=== PATIENT | male | born 1955 | race Caucasian/White ===

== ENCOUNTER → 2018-09-08 11:32 | Outpatient (CLI) | payer OTHER, SELFPAY ==
[2018-09-08 12:20] LABS: Add Manual Diff / Slide Review NO; Basophils Absolute Auto 100 /uL (0-100); Basophils Percent Auto 1.3 % (0-2); Eosinophils Absolute Auto 200 /uL (0-450); Eosinophils Percent Auto 3.9 % (2-4); Hematocrit 44.8 % (41-53); Hemoglobin 15.1 g/dL (13.5-17.5); Lymphocytes Absolute Auto 2100 /uL (1100-4500); Mean Corpuscular HGB Conc 33.8 % (30-36); Mean Corpuscular Hemoglobin 31.5 PG (26-34); Mean Corpuscular Volume 93.2 fL (80-100); Monocytes Absolute Auto 500 /uL (0-900); Monocytes Percent Auto 10.6 % (3-14); Neutrophils Absolute Auto 2200 /uL (1500-7000); Neutrophils Percent Auto 43.2 % (50-75); Platelet Count 205 X10^3/uL (150-400); Red Blood Cell Count 4.81 X10^6/uL (4.5-5.9); Red Cell Distribution Width 13.8 % (11.6-14.8)
[2018-09-08 12:29] LABS: Alanine Aminotransferase 46 IU/L (21-72); Albumin 4.9 g/dL (3.5-5.0); Albumin Globulin Ratio 1.8 (1.0-2.8); Alkaline Phosphatase 68 U/L (38-126); Aspartate Aminotransferase 30 IU/L (17-59); BUN Creatinine Ratio 22.5 (6-22); Blood Urea Nitrogen 18 mg/dL (9-20); Calcium 9.5 mg/dL (8.4-10.2); Carbon Dioxide 29 mmol/L (22-32); Chloride 99 mmol/L (98-107); Cholesterol 231 mg/dL (140-199); Estimated Glomerular Filt Rate > 60.0 mL/min (>60); Globulin 2.8 g/dL (1.7-4.1); Glucose 114 mg/dL (80-110); HDL Cholesterol 71 mg/dL (40-60); HEMOLYSIS < 15 (0-50); LDL Cholesterol Calculated 140 mg/dL (<100); Potassium 4.8 mmol/L (3.4-5.1); Sodium 138 mmol/L (137-145); Total Protein 7.7 g/dL (6.3-8.2); Triglycerides 102 mg/dL (35-150)
[2018-09-08 12:57] LABS: Prostate Specific Antigen Scrn 1.73 ng/mL (0.1-4.0)
[2018-09-08 13:58] LABS: Thyroid Stimulating Hormone 0.56 uIU/mL (0.47-4.68)
== END ==
PROVIDERS: PCP Family Medicine; Visit Provider Family Medicine
DX: E78.2 Mixed hyperlipidemia (principal); I10 Essential (primary) hypertension; Z12.5 Encounter for screening for malignant neoplasm of prostate; Z13.6 Encounter for screening for cardiovascular disorders; Z13.29 Encounter for screening for other suspected endocrine disorder
CPT/HCPCS: 36415; 80053; 80061; 84443; 85025; G0103

== ENCOUNTER → 2020-08-31 11:06 | Outpatient (CLI) | payer OTHER, SELFPAY ==
[2020-08-31 12:34] LABS: COVID19 -Nasal RAPID Negative (Negative)
== END ==
PROVIDERS: PCP Family Medicine; Visit Provider Physician Assistant
DX: Z01.812 Encounter for preprocedural laboratory examination (principal); Z20.822 Contact with and (suspected) exposure to COVID-19
CPT/HCPCS: 87635

== ENCOUNTER 2020-09-02 12:01 | Day surgery (SDC) | payer OTHER, SELFPAY ==
--- NOTE | 2020-09-02 12:17 | PM.HP.1 ---
History of Present Illness History of Present Illness Date Patient Seen: 09/02/20 Chief complaint: SDC Narrative: 65 Years Old Male seen today for consideration of a screening colonoscopy. One previous colonocopy approximately 10 years ago, normal. There have been no lower GI symptoms suggesting disease such as change in bowel habits, bleeding, abdominal pain or anemia. There's been no family history of colon cancer or colon polyps. Overall health issues have been stable, including no major cardiac events for at least 6 weeks. Past Medical History: HYPERLIPIDEMIA Hypertension Past Surgical History: Total Hip Arthroplasty (right 2007) left (2009) Knee Arthroscopy- Meniscus- right (2016) left (2019) Colonoscopy Family History: Reviewed history from 06/07/2020 and no changes required: Father: substance abuse Mother: heart disease Siblings: Social History: Marital Status: Children: Occupation: Retired Teacher Household Members: Glo Kemp (08/12/62) Education: 2 alcoholic drinks daily. Patient History Surgical History (Updated 07/09/17 @ 06:19 by Conversion Provider) History of hip replacement History of hip replacement Family & Social History Family History (Updated 10/22/13 @ 00:00 by Conversion Provider) Mother Hypertension High cholesterol Heart disease Meds Home Medications and Allergies Home Medications Medication Instructions Recorded Confirmed Type ASPIRIN (#ASPIRIN EC) 325 mg PO Q DAY #0 01/14/11 09/02/20 History quinapril 40 mg tablet 40 mg PO BID #180 tab 08/17/19 09/02/20 Rx amlodipine 5 mg tablet 5 mg PO QDAY #90 tab 10/26/19 09/02/20 Rx atorvastatin 20 mg tablet 40 mg PO BID #360 tab 10/26/19 09/02/20 Rx Allergies Allergy/AdvReac Type Severity Reaction Status Date / Time No Known Drug Allergies Allergy Verified 09/02/20 12:29 Review of Systems Review of Systems ROS: Yes All systems reviewed with the patient and are negative except as otherwise documented Exam Narrative Exam Narrative: General: well developed, well nourished, in no acute distress, Head: normocephalic and atraumatic, Lungs: normal respiratory effort, clear bilaterally to auscultation, no wheezes rales or rhonchi. Heart: normal rate and regular rhythm, no murmurs, rubs, gallops, or clicks, Abdomen: abdomen soft and non-tender without masses, organomegaly, or abdominal wall hernias, bowel sounds positive. Skin: intact without suspicious lesions or rashes, Psych: alert and cooperative; normal mood and affect; normal attention span and concentration; cognition, remote and recent memory appear to be intact, Assessment & Plan Assessment & Plan narrative: 1. Screening for colon cancer Plan for colonoscopy. The nature and character of the procedure as well as anticipated results were discussed. The possibility of not completing the procedure was also discussed. Possible complications including aspiration pneumonia, bleeding, perforation and reaction to medications either for sedation or preparation and missed lesions were discussed. Questions were answered and proceeding to the colonoscopy was elected. Informed consent signed. I sincerely appreciate the referral allowing me to participate in this patient's care. Please contact me with any questions or concerns.
--- NOTE | 2020-09-02 12:18 | PM.OP.ENDO ---
Operative Date/Time/Diagnoses Date of procedure: 09/02/20 Procedure Notes SCOAP/Timeout: 1:46 p.m. Procedure in detail: ENDOSCOPIST: Bre Farnsworth MD Sedation RN: Milo Carter RN Sedation start time: 1:47 p.m. Sedation end time: 2:06 p.m. PROCEDURE: Colonoscopy INDICATIONS: 1. Screening for colon cancer MEDICATION: Levsin 0.125 mg sublingual, incremental doses of Versed and fentanyl until appropriate level sedation achieved. ASA CLASS: 2 CECAL WITHDRAWAL TIME: 10 minutes COMPLICATIONS: None. EXTENT OF PROCEDURE: Cecum. QUALITY OF PREP: Good with portions of liquid stool. PROCEDURE: Prior to insertion of the colonoscope, a digital rectal examination was accomplished with circumferential palpation of the distal rectal mucosa without significant findings being noted. The high-definition colonoscope was passed into the rectum in the usual fashion and advanced over to the cecum without difficulty. The ileocecal valve, appendiceal stoma, and medial wall all could be inspected and no abnormalities were seen. ASCENDING COLON: As the colonoscope was withdrawn, care was taken to expose and inspect the haustral folds and no abnormalities were seen. HEPATIC FLEXURE: Normal, no polyps, diverticula or other abnormalities. TRANSVERSE COLON: Normal, no polyps, diverticula or other abnormalities. DESCENDING COLON: Normal, no polyps, diverticula or other abnormalities. SIGMOID COLON: Normal, no polyps, diverticula or other abnormalities. RECTUM: Normal. J maneuver was produced. There was no significant perianal disease. The J maneuver was broken. The remainder of the rectum was inspected and there was no external hemorrhoid disease. The scope was withdrawn. IMPRESSION: 1. Normal colonoscopy PLAN: 1. Repeat colonoscopy in 10 years. The possibility of a missed lesion including a malignancy has been discussed with the patient previously. Potential alarm symptoms have been discussed and should be reported immediately.
[2020-09-02 12:37] VITALS: BMI 27.6
[2020-09-02 12:43] VITALS: BP 151/90; PULSE 84; RESP 15; TEMP 36.6; O2SAT 96
[2020-09-02] MEDS: LACTATED RINGERS 1,000 ML 200 ML IV (12:45)
[2020-09-02] MEDS: MIDAZOLAM 5 MG/5 ML VIAL IV (14:03)
[2020-09-02] MEDS: fentaNYL 250 MCG/5 ML INJ IV (14:03)
[2020-09-02 14:12] VITALS: BP 127/71; PULSE 80; RESP 16; TEMP 36.6; O2SAT 100
[2020-09-02 14:17] VITALS: BP 120/83; PULSE 88; RESP 16; O2SAT 97
[2020-09-02 14:23] VITALS: BP 120/83; PULSE 81; RESP 14; O2SAT 97
[2020-09-02 14:39] VITALS: BP 122/70; PULSE 69; RESP 16; TEMP 36.7
== END 2020-09-02 14:43 | disposition home or self-care (01) ==
PROVIDERS: PCP Family Medicine; Referring Provider Student in an Organized Health Care Education/Training Program; Visit Provider Student in an Organized Health Care Education/Training Program
PROC: 0DJD8ZZ Inspection of Lower Intestinal Tract, Via Natural or Artificial Opening Endoscopic (ICD-10-PCS; CPT 45378; principal; 2020-09-02 13:45)
DX: Z12.11 Encounter for screening for malignant neoplasm of colon (principal); E78.5 Hyperlipidemia, unspecified; I10 Essential (primary) hypertension
CPT/HCPCS: 45378; J2250; J3010

== ENCOUNTER → 2022-07-16 07:42 | Outpatient (CLI) | payer MEDICARE, OTHER, SELFPAY ==
--- NOTE | 2022-07-18 11:37 | DI.NM.S_ITS ---
DATE OF SERVICE: 07/16/2022 PROCEDURE: Exercise treadmill stress test without imaging. ORDERING PROVIDER: Harry Tinsley MD INDICATIONS: The patient is a 67-year-old hypertensive male with hyperlipidemia and PVCs. FINDINGS: 1. The patient was able to exercise for 10 minutes and 28 seconds on a standard Mathieu protocol suggesting excellent exercise capacity with an CAMMY of -33%, achieving 12.8 METS. 2. He had a normal heart rate response to exercise achieving a maximum heart rate of 163 BPM (106% of his predicted maximum). He had a mild hypertensive blood pressure response with a resting blood pressure of 132/80, increasing to a maximum of 212/100. 3. He had no chest pain or other anginal symptoms. 4. His resting ECG showed sinus rhythm with occasional ventricular trigeminy and normal ST segments. With stress, he developed 1-[address] depression but this resolved within 1 minute of recovery and thus is nonspecific for ischemia. His PVCs resolved with stress but returned in recovery with a rare ventricular couplets, but no other complex ventricular ectopy. IMPRESSION: 1. Probable normal, low risk exercise treadmill stress test for ischemia. 2. Excellent exercise capacity without angina. While there is mild ST depression, this resolved early in recovery and is associated with a hypertensive blood pressure response to exercise making this finding nonspecific. If there is a high degree of clinical concern for underlying ischemic heart disease, consider an imaging stress test. 3. Resting PVCs that resolved with exercise, but returned in recovery with rare ventricular couplets, but no other complex ventricular ectopy. Alexx Bowman - ESCOBAR/carlo/toribio doc#: [id number]/job#: [id number] dd: 07/16/2022 16:47:00 dt: 07/16/2022 21:57:00 DICTATING MD/COPIES TO: Harry Cheung MD; Harry Tinsley MD COPIES MNE: MERLY;
== END ==
PROVIDERS: PCP Family Medicine; Referring Provider Family Medicine; Visit Provider Family Medicine
DX: I10 Essential (primary) hypertension (principal); E78.5 Hyperlipidemia, unspecified; I49.3 Ventricular premature depolarization
CPT/HCPCS: 93017

== ENCOUNTER 2022-11-10 06:45 | Emergency (ER) | payer MEDICARE, OTHER, SELFPAY ==
[2022-11-10] VITALS (11 sets, daily range): BP systolic 122–140; BP diastolic 61–71; PULSE 74–94; RESP 15–25; TEMP 37.1; O2SAT 92–97; BMI 28.8
--- NOTE | 2022-11-10 06:51 | ED.GENADULT ---
HPI - General Adult General Chief complaint: Allergic Reaction Stated complaint: swollen tongue Time Seen by Provider: 11/10/22 06:46 Related Data Home Medications Medication Instructions Recorded Confirmed ASPIRIN (#ASPIRIN EC) 325 mg PO Q DAY ##0 01/14/11 09/02/20 Previous Rx's Medication Instructions Recorded quinapril 40 mg tablet (Accupril) 40 mg PO BID #180 tabs 08/17/19 amlodipine 5 mg tablet (Norvasc) 5 mg PO QDAY #90 tabs 10/26/19 atorvastatin 20 mg tablet (Lipitor) 40 mg PO BID #360 tabs 10/26/19 Allergies Allergy/AdvReac Type Severity Reaction Status Date / Time No Known Drug Allergies Allergy Verified 09/02/20 12:29 Patient History Surgical History (Updated 07/09/17 @ 06:19 by Conversion Provider) History of hip replacement History of hip replacement Family History (Updated 10/22/13 @ 00:00 by Conversion Provider) Mother Hypertension High cholesterol Heart disease Social History household members: spouse Smoking Status: Never smoker alcohol intake: current Smoking Status: Never smoker alcohol intake frequency: 0-2 drinks per day Substance Use Type: does not use Exam Initial Vital Signs Initial Vital Signs: Vital Signs Temperature 98.7 F 11/10/22 06:49 Pulse Rate 94 H 11/10/22 06:49 Respiratory Rate 18 11/10/22 06:49 Blood Pressure 131/66 11/10/22 06:49 Pulse Oximetry 97 11/10/22 06:49 Oxygen Delivery Method Room Air 11/10/22 06:49 Course Orders Ordered: ED Orders 11/10/22 06:54 BMP [Basic Metabolic Panel] Stat C1 Esterase Inhibitor Stat C3 + C4 Stat CBC Auto Diff [Complete Blood Count AUTO DIFF] Stat Famotidine (Famotidine 20 Mg/2 Ml Vial) 20 mg IV NOW JOSE Sodium Chloride (Normal Saline 0.9%) 1,000 mls @ 1,000 mls/hr IV BOLUS ONE Stop: 11/10/22 07:50 Last Admin: 11/10/22 06:57 Dose: 1,000 mls/hr Documented By: RAMANDEEP Tranexamic Acid 1,000 mg/ (Sodium Chloride) 100 mls @ 200 mls/hr IV NOW ONE Stop: 11/10/22 07:23 Discontinued Medications Dexamethasone (Dexamethasone 10 Mg/Ml Vial) 10 mg IV NOW ONE Stop: 11/10/22 06:55 Diphenhydramine HCl (Diphenhydramine 50 Mg/Ml Vial) 50 mg IV NOW ONE Stop: 11/10/22 06:51 Last Admin: 11/10/22 06:55 Dose: 50 mg Documented By: RAMANDEEP Epinephrine HCl (Epinephrine 1 Mg/Ml) 0.3 mg IM NOW ONE Stop: 11/10/22 06:51 Last Admin: 11/10/22 06:54 Dose: 0.3 mg Documented By: RAMANDEEP Methylprednisolone (Methylprednisolone 125 Mg/2 Ml Vial) 125 mg IV NOW ONE Stop: 11/10/22 06:51 Last Admin: 11/10/22 06:55 Dose: 125 mg Documented By: RAMANDEEP Vital Signs Vital signs: Vital Signs - 8 hr 11/10/22 06:49 Temperature 98.7 F Pulse Rate 94 H Respiratory Rate 18 Blood Pressure 131/66 Pulse Oximetry 97 Oxygen Delivery Method Room Air Discharge Plan Departure Prescriptions: No Action ASPIRIN (#ASPIRIN EC) 325 mg PO Q DAY Qty: 0 quinapril [Accupril] 40 mg tablet 40 mg PO BID Qty: 180 3RF atorvastatin [Lipitor] 20 mg tablet 40 mg PO BID Qty: 360 0RF Rx Instructions: PT NEEDS TO BE SEEN FOR ANNUAL REVIEW PRIOR TO ANY FUTURE FILLS. PLEASE CALL TO SET UP APPT 10/23/19 amlodipine [Norvasc] 5 mg tablet 5 mg PO QDAY Qty: 90 0RF Rx Instructions: PT NEEDS TO BE SEEN FOR ANNUAL REVIEW PRIOR TO ANY FUTURE FILLS. PLEASE CALL TO SET UP APPT 10/23/19 Referrals: Harry Tinsley MD [Primary Care Provider] -
[2022-11-10] MEDS: EPINEPHrine 1 MG/ML 0.3 MG IM (06:54)
[2022-11-10] MEDS: methylPREDNISolone 125 MG/2 ML VIAL IV (06:55)
[2022-11-10] MEDS: diphenhydrAMINE 50 MG/ML VIAL IV (06:55)
[2022-11-10] MEDS: SODIUM CHLORIDE 0.9% 1,000 ML 1000 ML IV (06:57)
--- NOTE | 2022-11-10 07:01 | PC.NURSE ---
Pharmacy called for TXA order per MAY. Greyed out in pyxis. Unable to admin at this time.
--- NOTE | 2022-11-10 07:02 | ED_ITS ---
HPI - Allergic Reaction General Chief complaint: Allergic Reaction Stated complaint: swollen tongue Time Seen by Provider: 11/10/22 06:46 Source: patient Mode of arrival: Ambulatory History of Present Illness HPI narrative: 67-year-old male nonsmoker with history of hypertension and hyperlipidemia presents for evaluation of a swollen tongue. He went to bed in his normal state of health and awoke this morning with an odd sensation of his tongue and went to find that the left side of his tongue was swollen. He denies any trauma or inj ury. Denies any difficulty breathing or swallowing. Denies face, lip or throat swelling. Denies any rash or GI symptoms such as nausea, vomiting or diarrhea. He denies any history of the same. He denies any exposure to known allergens or new pets, lotions, soaps or other. He has been on an CORRIE inhibitor for many years. He denies any new medications or dietary change Related Data Home Medications Medication Instructions Recorded Confirmed ASPIRIN (#ASPIRIN EC) 325 mg PO Q DAY ##0 01/14/11 09/02/20 atorvastatin 20 mg tablet (Lipitor) 40 mg PO DAILY 11/10/22 11/10/22 lisinopril 40 mg tablet 40 mg PO DAILY 11/10/22 11/10/22 Previous Rx's Medication Instructions Recorded amlodipine 5 mg tablet (Norvasc) 5 mg PO QDAY #90 tabs 10/26/19 Allergies Allergy/AdvReac Type Severity Reaction Status Date / Time No Known Drug Allergies Allergy Verified 11/10/22 09:29 Review of Systems Review of Systems Narrative: GENERAL: Denies chills, fatigue, malaise, fever, sweats. HEENT: See HPI RESPIRATORY: Denies dyspnea, cough, wheezing, hemoptysis, sputum. CARDIOVASCULAR: Denies chest pain, palpitations, orthopnea, edema, GASTROINTESTINAL: Denies nausea, vomiting, abdominal pain, diarrhea, constipation, melena. : Denies dysuria, frequency, incontinence, hematuria, urinary retention. MUSCULOSKELETAL: denies weakness, joint pain, or bony pain SKIN: Denies rash, skin lesions, or other NEUROLOGIC: Denies weakness, headache, numbness, change in speech, confusion, seizures, incoordination. PSYCHIATRIC: No concerning psychosocial issues. 12 point review of systems is negative except for those stated above Patient History Surgical History History of hip replacement History of hip replacement Family History Mother Hypertension High cholesterol Heart disease Social History household members: spouse Smoking Status: Never smoker alcohol intake: current Smoking Status: Never smoker alcohol intake frequency: 0-2 drinks per day Substance Use Type: does not use Exam Narrative Exam Narrative: GENERAL: [67] year old patient appears stated age. Well-developed patient, in mild distress. HEAD: Atraumatic. Normocephalic. EYES: Pupils equal round and reactive. Extraocular motions intact. No scleral icterus. No injection or drainage. ENT: Nose without bleeding, purulent drainage. Tongue with moderate swelling of the left side only, no airway compromise, controlling secretions without difficulty, no other face or lip swelling noted Throat without erythema, tonsillar hypertrophy or exudate. Airway patent. NECK: Trachea midline. Non tender CARDIOVASCULAR: Regular rate and rhythm without murmurs, gallops, or rubs. RESPIRATORY: Clear to auscultation. Breath sounds equal bilaterally. No wheezes, rales, or rhonchi. GASTROINTESTINAL: Abdomen soft, non-tender, nondistended. EXTREMITIES: No edema or joint tenderness. BACK: Nontender without deformity or crepitance. No flank tenderness. NEURO: AOx3. SKIN: No rash or erythema of visible areas Initial Vital Signs Initial Vital Signs: Vital Signs Temperature 98.7 F 11/10/22 06:49 Pulse Rate 94 H 11/10/22 06:49 Respiratory Rate 18 11/10/22 06:49 Blood Pressure 131/66 11/10/22 06:49 Pulse Oximetry 97 11/10/22 06:49 Oxygen Delivery Method Room Air 11/10/22 06:49 Course Orders Ordered: ED Orders 11/10/22 06:52 BMP [Basic Metabolic Panel] Stat CBC Auto Diff [Complete Blood Count AUTO DIFF] Stat 11/10/22 06:54 C1 Esterase Inhibitor Stat C3 + C4 Stat Discontinued Medications Dexamethasone (Dexamethasone 10 Mg/Ml Vial) 10 mg IV NOW ONE Stop: 11/10/22 06:55 Last Admin: 11/10/22 07:12 Dose: Not Given Documented By: RAMANDEEP Diphenhydramine HCl (Diphenhydramine 50 Mg/Ml Vial) 50 mg IV NOW ONE Stop: 11/10/22 06:51 Last Admin: 11/10/22 06:55 Dose: 50 mg Documented By: RAMANDEEP Epinephrine HCl (Epinephrine 1 Mg/Ml) 0.3 mg IM NOW ONE Stop: 11/10/22 06:51 Last Admin: 11/10/22 06:54 Dose: 0.3 mg Documented By: RAMANDEEP Famotidine (Famotidine 20 Mg/2 Ml Vial) 20 mg IV NOW JOSE Last Admin: 11/10/22 07:07 Dose: 20 mg Documented By: RAMANDEEP Sodium Chloride (Normal Saline 0.9%) 1,000 mls @ 1,000 mls/hr IV BOLUS ONE Stop: 11/10/22 07:50 Last Infusion: 11/10/22 07:52 Dose: 0 mls/hr Documented By: Admin: 11/10/22 06:57 Dose: 1,000 mls/hr Documented By: RAMANDEEP Tranexamic Acid 1,000 mg/ (Sodium Chloride) 100 mls @ 200 mls/hr IV NOW ONE Stop: 11/10/22 07:23 Last Infusion: 11/10/22 07:53 Dose: 0 mls/hr Documented By: Admin: 11/10/22 07:09 Dose: 200 mls/hr Documented By: RAMANDEEP Methylprednisolone (Methylprednisolone 125 Mg/2 Ml Vial) 125 mg IV NOW ONE Stop: 11/10/22 06:51 Last Admin: 11/10/22 06:55 Dose: 125 mg Documented By: RAMANDEEP Reevaluation(s) Reevaluation #1: Significant improvement after above-stated therapies Vital Signs Vital signs: Vital Signs - 8 hr 11/10/22 06:49 11/10/22 06:52 11/10/22 07:00 Temperature 98.7 F Pulse Rate 94 H 88 Respiratory Rate 18 25 H Blood Pressure 131/66 130/71 Pulse Oximetry 97 95 Oxygen Delivery Method Room Air 11/10/22 07:00 11/10/22 07:30 11/10/22 07:30 Temperature Pulse Rate 87 86 Respiratory Rate 18 18 Blood Pressure 140/62 Pulse Oximetry 96 97 Oxygen Delivery Method 11/10/22 08:00 11/10/22 08:00 11/10/22 08:18 Temperature Pulse Rate 83 84 Respiratory Rate 18 21 Blood Pressure 130/66 Pulse Oximetry 95 95 Oxygen Delivery Method 11/10/22 08:18 11/10/22 08:30 11/10/22 08:30 Temperature Pulse Rate 80 Respiratory Rate 15 Blood Pressure 139/66 132/62 Pulse Oximetry 93 Oxygen Delivery Method 11/10/22 09:00 11/10/22 09:00 11/10/22 09:33 Temperature Pulse Rate 80 88 Respiratory Rate 15 16 Blood Pressure 122/66 Pulse Oximetry 93 92 Oxygen Delivery Method 11/10/22 10:00 11/10/22 10:00 11/10/22 10:30 Temperature Pulse Rate 74 Respiratory Rate 15 Blood Pressure 126/61 128/71 Pulse Oximetry 92 Oxygen Delivery Method 11/10/22 10:30 Temperature Pulse Rate 81 Respiratory Rate 24 Blood Pressure Pulse Oximetry 94 Oxygen Delivery Method MDM - Allergic Reaction Lab Data 11/10/22 06:52 11/10/22 06:52 Labs: Lab Results 11/10/22 11/10/22 Range/Units 06:52 06:52 WBC 5.9 (4.5-11.0) X10^3/uL RBC 4.15 L (4.5-5.9) X10^6/uL Hgb 13.3 L (13.5-17.5) g/dL Hct 38.8 L (41-53) % MCV 93.5 (80-100) fL MCH 32.1 (26-34) PG MCHC 34.4 (30-36) % RDW 13.5 (11.6-14.8) % Plt Count 193 (150-400) X10^3/uL Neut % (Auto) 43.6 L (50-75) % Lymph % (Auto) 34.6 (25-40) % Bledsoe % (Auto) 10.5 (3-14) % Eos % (Auto) 10.1 H (2-4) % Baso % (Auto) 1.2 (0-2) % Neut # (Auto) 2600 (5519-8608) /uL Lymph # (Auto) 2000 (0139-5484) /uL Bledsoe # (Auto) 600 (0-900) /uL Eos # (Auto) 600 H (0-450) /uL Baso # (Auto) 100 (0-100) /uL Sodium 137 (137-145) mmol/L Potassium 4.3 (3.4-5.1) mmol/L Chloride 105 (98-107) mmol/L Carbon Dioxide 21 L (22-32) mmol/L BUN 32 H (9-20) mg/dL Creatinine 0.83 (0.66-1.25) mg/dL Estimated GFR > 60 (>60) mL/min BUN/Creatinine Ratio 38.6 H (6-22) Glucose 97 (80-110) mg/dL Calcium 9.5 (8.4-10.2) mg/dL MDM Narrative Medical decision making narrative: CC: 67-year-old male with tongue swelling Complicating co-morbidities: Age, hypertension, hyperlipidemia Data collected from: Patient Medical records reviewed: Prior notes reviewed in our EMR Differential considered, but not limited to: Angioedema (histaminergic vs. bradykinin vs hereditary vs. other) versus allergic reaction versus other Exam documented above, pertinent findings include: Left-sided tongue swelling, airway patent, no respiratory distress, controlling secretions, no other face or lip swelling, heart rate regular, lungs clear, no rash Lab Test results independently reviewed as above. Pertinent findings: No leukocytosis, relative decrease in hemoglobin to 13.3 down from 15.1 in 2019, no left shift, eosinophil% 10.1, primary electrolytes within normal, renal function at baseline Treatments: Benadryl, Decadron, epinephrine, TXA Re-evaluations: Patient with significant improvement after above-stated therapies, he does, however have some residual swelling of his tongue Discussion: Patient with a portion of the left side of his tongue swelling over the course of the night in the absence of other allergic-type symptoms such as rash, trouble breathing, GI symptoms. At no point dizzy have any difficulty swallowing or breathing, no swelling other than the left side of his tongue, no face, lip or throat. He has significant improvement in symptoms after above- stated therapies. Given his history of use of CORRIE inhibitors it would seem most likely that this is an angioedema related to CORRIE inhibitor use, he is encouraged to stop its use, maintain amlodipine, follow closely with his primary care provider. Extensive return precautions discussed which patient clearly understands given his ability to repeat it Disposition: see below, along with detailed discharge instructions that have been reviewed with patient as well as indications for ED re-evaluation and additional outpatient follow up Discharge Plan Departure Patient Disposition: Home Clinical Impression: Angioedema Instructions: DI for Angioedema Activity Restrictions/Additional Instructions: *You have been diagnosed with [angioedema, likely due to your Pril blood press ure medication] *What to do: *Do not take your Quinapril (or other Pril blood pressure meds any more. Otherwise, please continue to take your regular medications as directed. [ ] New medication prescriptions sent to your pharmacy: [ ] [ ] New medication written as a paper prescription [ ] No new medications given *Please follow up with your primary care provider in 2-3 days, call for an appointment. Let them know you were seen in the Emergency Department and that we ask that you be seen in follow up. We will electronically transmit a record of today's note if your PCP is in our system *If you do not have a primary care provider please contact the [facility] Resource line at [phone]. They will ask some questions about your medical history and help get you set up with a doctor in the community. *Return to Emergency Department if you should have any new, worsening or concerning symptoms, such as [fever greater than 101 F, shaking chills, worsening pain, persistent vomiting or other bothersome symptoms] Prescriptions: No Action ASPIRIN (#ASPIRIN EC) 325 mg PO Q DAY Qty: 0 amlodipine [Norvasc] 5 mg tablet 5 mg PO QDAY Qty: 90 0RF Rx Instructions: PT NEEDS TO BE SEEN FOR ANNUAL REVIEW PRIOR TO ANY FUTURE FILLS. PLEASE CALL TO SET UP APPT 10/23/19 lisinopril 40 mg tablet 40 mg PO DAILY atorvastatin [Lipitor] 20 mg tablet 40 mg PO DAILY Rx Instructions: PT NEEDS TO BE SEEN FOR ANNUAL REVIEW PRIOR TO ANY FUTURE FILLS. PLEASE CALL TO SET UP APPT 10/23/19 Referrals: Harry Tinsley MD [Primary Care Provider] - Stand Alone Forms: Patient Portal/API
[2022-11-10] MEDS: FAMOTIDINE 20 MG/2 ML VIAL IV (07:07)
[2022-11-10] MEDS: TRANEXAMIC ACID 1,000 MG in SODIUM CHLORIDE 0.9% 100 ML 200 MG IV (07:09)
[2022-11-10 07:12] LABS: Add Manual Diff / Slide Review NO; Basophils Absolute Auto 100 /uL (0-100); Basophils Percent Auto 1.2 % (0-2); Eosinophils Absolute Auto 600 /uL (0-450); Eosinophils Percent Auto 10.1 % (2-4); Hematocrit 38.8 % (41-53); Hemoglobin 13.3 g/dL (13.5-17.5); Lymphocytes Absolute Auto 2000 /uL (1100-4500); Lymphocytes Percent Auto 34.6 % (25-40); Mean Corpuscular HGB Conc 34.4 % (30-36); Mean Corpuscular Hemoglobin 32.1 PG (26-34); Mean Corpuscular Volume 93.5 fL (80-100); Monocytes Absolute Auto 600 /uL (0-900); Monocytes Percent Auto 10.5 % (3-14); Neutrophils Absolute Auto 2600 /uL (1500-7000); Neutrophils Percent Auto 43.6 % (50-75); Platelet Count 193 X10^3/uL (150-400); Red Blood Cell Count 4.15 X10^6/uL (4.5-5.9); Red Cell Distribution Width 13.5 % (11.6-14.8); White Blood Cell Count 5.9 X10^3/uL (4.5-11.0)
[2022-11-10 07:19] LABS: BUN Creatinine Ratio 38.6 (6-22); Blood Urea Nitrogen 32 mg/dL (9-20); Calcium 9.5 mg/dL (8.4-10.2); Carbon Dioxide 21 mmol/L (22-32); Chloride 105 mmol/L (98-107); Estimated Glomerular Filt Rate > 60 mL/min (>60); Glucose 97 mg/dL (80-110); HEMOLYSIS 30 (0-50); Potassium 4.3 mmol/L (3.4-5.1); Sodium 137 mmol/L (137-145)
[2022-11-12 06:12] LABS: Complement C3 122 mg/dL (82-167)
[2022-11-14 10:45] LABS: C1 Esterase Inhibitor 27 mg/dL (21-39)
== END 2022-11-10 10:42 | disposition home or self-care (01) ==
PROVIDERS: Emergency Provider Emergency Medicine; PCP Family Medicine
DX: T78.3XXA Angioneurotic edema, initial encounter (principal)
CPT/HCPCS: 36415; 80048; 85025; 86160; 96365; 96372; 96375; 99284; J0171; J1200; J2930

== ENCOUNTER → 2023-03-16 07:32 | Outpatient (CLI) | payer MEDICARE, OTHER, SELFPAY ==
[2023-03-16 08:37] LABS: Add Manual Diff / Slide Review NO; Basophils Absolute Auto 100 /uL (0-100); Basophils Percent Auto 1.2 % (0-2); Eosinophils Absolute Auto 300 /uL (0-450); Eosinophils Percent Auto 5.6 % (2-4); Hematocrit 45.3 % (41-53); Hemoglobin 15.5 g/dL (13.5-17.5); Lymphocytes Absolute Auto 2000 /uL (1100-4500); Lymphocytes Percent Auto 39.5 % (25-40); Mean Corpuscular HGB Conc 34.2 % (30-36); Mean Corpuscular Volume 90.7 fL (80-100); Monocytes Absolute Auto 600 /uL (0-900); Monocytes Percent Auto 11.8 % (3-14); Neutrophils Absolute Auto 2100 /uL (1500-7000); Neutrophils Percent Auto 41.9 % (50-75); Platelet Count 204 X10^3/uL (150-400); Red Blood Cell Count 4.99 X10^6/uL (4.5-5.9); Red Cell Distribution Width 13.8 % (11.6-14.8); White Blood Cell Count 5.1 X10^3/uL (4.5-11.0)
[2023-03-16 09:16] LABS: Alanine Aminotransferase 31 IU/L (<50); Albumin 4.6 g/dL (3.5-5.0); Albumin Globulin Ratio 1.5 (1.0-2.8); Alkaline Phosphatase 63 U/L (38-126); Aspartate Aminotransferase 33 IU/L (17-59); Bilirubin Total 1.4 mg/dL (0.2-1.3); Blood Urea Nitrogen 15 mg/dL (9-20); Carbon Dioxide 25 mmol/L (22-32); Chloride 101 mmol/L (98-107); Estimated Glomerular Filt Rate > 60 mL/min (>60); Glucose 120 mg/dL (80-110); HEMOLYSIS < 15 (0-50); Potassium 4.2 mmol/L (3.4-5.1); Sodium 134 mmol/L (137-145); Total Protein 7.6 g/dL (6.3-8.2)
[2023-03-16 09:44] LABS: Prostate Specific Antigen Scrn 0.575 ng/mL (0.1-4.0)
[2023-03-16 09:45] LABS: TSH w/ Reflex to FT4 1.34 uIU/mL (0.47-4.68)
[2023-03-17 08:09] LABS: Cholesterol HDL Ratio 2.7 ratio (0.0-5.0); Cholesterol,Total 226 mg/dL (100-199); HDL Cholesterol 83 mg/dL (>39); LDL Cholesterol Cal 117 mg/dL (0-99); Triglycerides 150 mg/dL (0-149); VLDL Cholesterol Cal 26 mg/dL (5-40)
== END ==
LOC: LAB 07:35
PROVIDERS: PCP Family Medicine; Referring Provider Family Medicine; Visit Provider Family Medicine
DX: Z00.00 Encounter for general adult medical examination without abnormal findings (principal); I10 Essential (primary) hypertension; E78.5 Hyperlipidemia, unspecified; N40.1 Benign prostatic hyperplasia with lower urinary tract symptoms; Z12.5 Encounter for screening for malignant neoplasm of prostate
CPT/HCPCS: 36415; 80053; 80061; 84443; 85025; G0103

== ENCOUNTER 2023-07-05 10:40 | Inpatient (IN) | payer MEDICARE, OTHER, SELFPAY ==
[2023-07-05] VITALS (73 sets, daily range): BP systolic 84–156; BP diastolic 59–123; PULSE 84–144; RESP 9–41; TEMP 35.9–36.8; O2SAT 86–95; BMI 30.1
--- NOTE | 2023-07-05 10:53 | DI.RAD.S_ITS ---
PROCEDURE: XR CHEST 1V INDICATIONS: SOB TECHNIQUE: One view of the chest was acquired. COMPARISON: [facility], , CHEST 1 VIEW, 07/07/2009, 23:01. FINDINGS: Surgical changes and devices: None. Lungs and pleura: Bibasilar patchy consolidation, left greater than right. Small left pleural effusion. No right-sided pleural effusion. No pneumothorax bilaterally. Mediastinum: Mediastinal contours appear normal. Heart size is normal. Bones and chest wall: No suspicious bony lesions. Overlying soft tissues appear unremarkable. IMPRESSION: Bibasilar patchy consolidation, left greater than right, with small left pleural effusion is suggestive of atelectasis, aspiration and/or pneumonia. Recommend radiographic follow-up to document resolution. Dictated by: Gisselle Olivares M.D. on 07/05/2023 at 11:15 Approved by: Gisselle Olivares M.D. on 07/05/2023 at 11:17
[2023-07-05 11:17] LABS: Add Manual Diff / Slide Review NO; Basophils Absolute Auto 100 /uL (0-100); Basophils Percent Auto 0.9 % (0-2); Eosinophils Absolute Auto 100 /uL (0-450); Hematocrit 42.3 % (41-53); Hemoglobin 14.4 g/dL (13.5-17.5); Lymphocytes Absolute Auto 2000 /uL (1100-4500); Lymphocytes Percent Auto 29.6 % (25-40); Mean Corpuscular HGB Conc 34.1 % (30-36); Mean Corpuscular Hemoglobin 31.8 PG (26-34); Mean Corpuscular Volume 93.2 fL (80-100); Monocytes Absolute Auto 600 /uL (0-900); Monocytes Percent Auto 9.5 % (3-14); Neutrophils Absolute Auto 4000 /uL (1500-7000); Platelet Count 189 X10^3/uL (150-400); Red Blood Cell Count 4.54 X10^6/uL (4.5-5.9); Red Cell Distribution Width 13.9 % (11.6-14.8); White Blood Cell Count 6.8 X10^3/uL (4.5-11.0)
--- NOTE | 2023-07-05 11:21 | ED_ITS ---
HPI - General Adult General Chief complaint: Shortness of Breath/Dyspnea Stated complaint: sob, dizziness, weak Time Seen by Provider: 07/05/23 10:52 Source: patient and family Mode of arrival: Ambulatory History of Present Illness HPI narrative: Patient is a 68-year-old male who has a history of high blood pressure and high cholesterol who stated that 2 nights ago he did not sleep very well. Yesterday he was out digging for clams when he stated that he started to become short of breath and had some dizziness and weakness. No chest pain specifically but does have pressure. Does have some lightheadedness specifically when he stands up. No palpitations. No abdominal pain, nausea, vomiting, headache, lower extremity swelling. No prior history of abnormal heart rhythms. No fevers. Related Data Home Medications Medication Instructions Recorded Confirmed ASPIRIN (#ASPIRIN EC) 325 mg PO Q DAY ##0 01/14/11 09/02/20 atorvastatin 20 mg tablet (Lipitor) 40 mg PO DAILY 11/10/22 11/10/22 lisinopril 40 mg tablet 40 mg PO DAILY 11/10/22 11/10/22 Previous Rx's Medication Instructions Recorded amlodipine 5 mg tablet (Norvasc) 5 mg PO QDAY #90 tabs 10/26/19 Allergies Allergy/AdvReac Type Severity Reaction Status Date / Time No Known Drug Allergies Allergy Verified 11/10/22 09:29 Review of Systems Review of Systems ROS Unobtainable: All systems reviewed & are unremarkable except as noted in HPI and below Patient History Surgical History History of hip replacement History of hip replacement Family History Mother Hypertension High cholesterol Heart disease Social History household members: spouse Smoking Status: Never smoker alcohol intake: current Smoking Status: Never smoker alcohol intake frequency: 0-2 drinks per day Substance Use Type: does not use Exam Initial Vital Signs Initial Vital Signs: Vital Signs Blood Pressure 132/93 H 07/05/23 10:45 Const General: cooperative, comfortable and No ill appearing HENMT Head: normal to inspection and normocephalic Resp Effort & Inspection: normal respiratory effort, no cough and tachypneic Auscultation: clear to auscultation bilaterally, no rales, no rhonchi and no wheezes Cardio Rate: tachycardic Rhythm: abnormal rhythm GI Inspection: normal to inspection and non-distended Skin General: no rashes or lesions noted Neuro General: patient alert, patient awake, patient oriented x3 and moves all extremities Extrem General: capillary refill normal and No edema Scores GCS [place] coma scale eye opening: Spontaneous Patrica coma scale verbal response: Orientated Patrica coma scale motor response: Obey commands Patrica coma scale total score: 15 Course Orders Ordered: ED Orders 07/05/23 10:53 XR chest 1V Stat 07/05/23 11:00 Complete Blood Count AUTO DIFF Stat Comprehensive Metabolic Panel Stat Lipase Stat Magnesium Stat NT-proBNP (BNP-Adult 18+) Stat PTT Partial Thromboplastin Efrain Stat Prothrombin Time INR Stat Troponin & CK Cardiac Panel Stat 07/05/23 11:06 EKG-12 Lead Stat 07/05/23 11:23 CT angio chest PE protocol Stat Respiratory Panel (Film Array) Stat 07/05/23 11:26 Procalcitonin Stat 07/05/23 13:00 Troponin & CK Cardiac Panel Stat 07/05/23 14:00 EC echo doppler complete Stat 07/05/23 14:02 US abdomen limited Stat 07/05/23 14:03 Consult to Physician Stat Consult to Physician Stat DILTIAZEM (Diltiazem 125 Mg/125 Ml-D5w) 125 mg in 125 mls @ 5 mls/hr IV TITRATE JOSE; Protocol Last Titration: 07/05/23 12:13 Dose: 5 mg/hr, 5 mls/hr Documented By: Titration: 07/05/23 12:02 Dose: 0 mg/hr, 0 mls/hr Documented By: Admin: 07/05/23 11:38 Dose: 5 mg/hr, 5 mls/hr Documented By: JOHANNE Discontinued Medications Aspirin (Aspirin 81 Mg Chew Tab) 324 mg PO NOW ONE Stop: 07/05/23 11:45 Last Admin: 07/05/23 11:51 Dose: 324 mg Documented By: IJEOMA Diltiazem HCl (Diltiazem 5 Mg/Ml Sdv) 10 mg IV NOW ONE Stop: 07/05/23 11:24 Last Admin: 07/05/23 11:38 Dose: 10 mg Documented By: JOHANNE Furosemide (Furosemide 40 Mg/4 Ml Vial) 40 mg IV NOW ONE Stop: 07/05/23 14:02 Last Admin: 07/05/23 14:11 Dose: 40 mg Documented By: JOHANNE Potassium Chloride (Potassium Chloride 20 Meq Tab) 40 meq PO NOW ONE Stop: 07/05/23 14:02 Last Admin: 07/05/23 14:11 Dose: 40 meq Documented By: JOHANNE Vital Signs Vital signs: Vital Signs - 8 hr 07/05/23 10:45 07/05/23 10:46 07/05/23 10:49 Temperature Pulse Rate 144 H 142 H Respiratory Rate 19 23 Blood Pressure 132/93 H Pulse Oximetry 90 L 92 Oxygen Delivery Method Nasal Cannula Nasal Cannula Oxygen Flow Rate 2 2 07/05/23 10:49 07/05/23 10:50 07/05/23 10:50 Temperature Pulse Rate 140 H Respiratory Rate 19 Blood Pressure 139/87 148/82 H Pulse Oximetry 92 Oxygen Delivery Method Nasal Cannula Oxygen Flow Rate 2 07/05/23 11:00 07/05/23 11:06 07/05/23 11:08 Temperature 97.6 F Pulse Rate 134 H 143 H 132 H Respiratory Rate 25 H 22 22 Blood Pressure 139/78 Pulse Oximetry 93 86 L 93 Oxygen Delivery Method Nasal Cannula Room Air Nasal Cannula Oxygen Flow Rate 2 2 07/05/23 11:08 07/05/23 11:10 07/05/23 11:11 Temperature Pulse Rate 129 H 132 H Respiratory Rate 23 24 Blood Pressure 145/95 H Pulse Oximetry 92 93 Oxygen Delivery Method Oxygen Flow Rate 07/05/23 11:11 07/05/23 11:20 07/05/23 11:20 Temperature Pulse Rate 133 H Respiratory Rate 22 Blood Pressure 115/93 H 128/104 H Pulse Oximetry 91 Oxygen Delivery Method Oxygen Flow Rate 07/05/23 11:30 07/05/23 11:30 07/05/23 11:38 Temperature Pulse Rate 132 H 133 H Respiratory Rate 17 Blood Pressure 130/83 130/83 Pulse Oximetry 94 Oxygen Delivery Method Oxygen Flow Rate 07/05/23 11:40 07/05/23 11:40 07/05/23 11:50 Temperature Pulse Rate 132 H Respiratory Rate 20 Blood Pressure 125/89 104/84 Pulse Oximetry 92 Oxygen Delivery Method Nasal Cannula Oxygen Flow Rate 3 07/05/23 11:50 07/05/23 12:00 07/05/23 12:10 Temperature Pulse Rate 120 H 107 H Respiratory Rate 25 H Blood Pressure Pulse Oximetry 91 92 93 Oxygen Delivery Method Oxygen Flow Rate 07/05/23 12:12 07/05/23 12:12 07/05/23 12:20 Temperature Pulse Rate 119 H 106 H Respiratory Rate 18 18 Blood Pressure 107/85 Pulse Oximetry 91 92 Oxygen Delivery Method Oxygen Flow Rate 07/05/23 12:20 07/05/23 12:30 07/05/23 12:30 Temperature Pulse Rate 105 H Respiratory Rate 10 L Blood Pressure 114/89 111/91 H Pulse Oximetry 93 Oxygen Delivery Method Nasal Cannula Oxygen Flow Rate 3 07/05/23 12:37 07/05/23 12:40 07/05/23 12:40 Temperature Pulse Rate 108 H Respiratory Rate 12 Blood Pressure 121/105 H Pulse Oximetry 92 91 Oxygen Delivery Method Nasal Cannula Oxygen Flow Rate 2 07/05/23 12:50 07/05/23 12:51 07/05/23 12:51 Temperature Pulse Rate 103 H 109 H Respiratory Rate 12 18 Blood Pressure 121/93 H Pulse Oximetry 93 92 Oxygen Delivery Method Nasal Cannula Oxygen Flow Rate 2 07/05/23 13:00 07/05/23 13:10 07/05/23 13:10 Temperature Pulse Rate 108 H 104 H Respiratory Rate 22 12 Blood Pressure 116/75 Pulse Oximetry 92 93 Oxygen Delivery Method Oxygen Flow Rate 07/05/23 13:20 Temperature Pulse Rate 101 H Respiratory Rate 12 Blood Pressure Pulse Oximetry 93 Oxygen Delivery Method Nasal Cannula Oxygen Flow Rate 2 Medical Decision Making Medical Records Medical records reviewed: Yes I reviewed the patient's medical records. Lab Data Lab results reviewed: Yes I reviewed the patient's lab results. 07/05/23 11:00 07/05/23 11:00 Labs: Lab Results 07/05/23 07/05/23 07/05/23 Range/Units 11:00 11:23 11:23 WBC 6.8 (4.5-11.0) X10^3/uL RBC 4.54 (4.5-5.9) X10^6/uL Hgb 14.4 (13.5-17.5) g/dL Hct 42.3 (41-53) % MCV 93.2 (80-100) fL MCH 31.8 (26-34) PG MCHC 34.1 (30-36) % RDW 13.9 (11.6-14.8) % Plt Count 189 (150-400) X10^3/uL Neut % (Auto) 59.0 (50-75) % Lymph % (Auto) 29.6 (25-40) % Harris % (Auto) 9.5 (3-14) % Eos % (Auto) 1.0 L (2-4) % Baso % (Auto) 0.9 (0-2) % Neut # (Auto) 4000 (5435-3149) /uL Lymph # (Auto) 2000 (0572-2756) /uL Harris # (Auto) 600 (0-900) /uL Eos # (Auto) 100 (0-450) /uL Baso # (Auto) 100 (0-100) /uL PT 11.9 (9.4-12.5) SECONDS INR 1.0 (0.9-1.3) APTT 30 (25.1-36.5) SECONDS Sodium 136 L (137-145) mmol/L Potassium 3.2 L (3.4-5.1) mmol/L Chloride 100 (98-107) mmol/L Carbon Dioxide 27 (22-32) mmol/L BUN 19 (9-20) mg/dL Creatinine 0.74 (0.66-1.25) mg/dL Estimated GFR > 60 (>60) mL/min BUN/Creatinine Ratio 25.7 H (6-22) Glucose 148 H (80-110) mg/dL Calcium 9.4 (8.4-10.2) mg/dL Magnesium 1.9 (1.6-2.3) mg/dL Total Bilirubin 1.5 H (0.2-1.3) mg/dL AST 141 H (17-59) IU/L ALT 330 H (<50) IU/L Alkaline Phosphatase 124 (38-126) U/L Total Creatine Kinase 148 (55-170) U/L Troponin I 0.037 H (0.01-0.034) ng/mL NT-Pro-B Natriuret Pep 2160 H (<125) pg/mL Total Protein 7.1 (6.3-8.2) g/dL Albumin 4.5 (3.5-5.0) g/dL Globulin 2.6 (1.7-4.1) g/dL Albumin/Globulin Ratio 1.7 (1.0-2.8) Lipase 70 (23-300) U/L Procalcitonin (<0.5) ng/mL Chlamy pneumoniae PCR Not detected (Not Detect) Adenovirus (PCR) Not detected (Not Detect) B.parapertussis DNA PCR Not detected (Not Detecte) Coronavirus OC43 (PCR) Not detected (Not Detect) Coronavirus HKU1 (PCR) Not detected (Not Detect) Coronavirus 229E (PCR) Not detected (Not Detect) SARS-CoV-2 (PCR) Cancelled Not detected Coronavirus NL63 (PCR) Not detected (Not Detect) Human Metapneumovir PCR Not detected (Not Detect) Influenza A (RT-PCR) Cancelled Influenza Type A (PCR) Not detected (Not Detect) Influenza B (RT-PCR) Cancelled Influenza Type B (PCR) Not detected (Not Detect) M. pneumoniae (PCR) Not detected (Not Detect) Parainfluenza 1 (PCR) Not detected (Not Detect) Parainfluenza 2 (PCR) Not detected (Not Detect) Parainfluenza 3 (PCR) Not detected (Not Detect) Parainfluenza 4 (PCR) Not detected (Not Detect) RSV (PCR) Cancelled Entero/Rhino (PCR) (Not Detect) 07/05/23 07/05/23 07/05/23 Range/Units 11:23 11:26 13:00 WBC (4.5-11.0) X10^3/uL RBC (4.5-5.9) X10^6/uL Hgb (13.5-17.5) g/dL Hct (41-53) % MCV (80-100) fL MCH (26-34) PG MCHC (30-36) % RDW (11.6-14.8) % Plt Count (150-400) X10^3/uL Neut % (Auto) (50-75) % Lymph % (Auto) (25-40) % Harris % (Auto) (3-14) % Eos % (Auto) (2-4) % Baso % (Auto) (0-2) % Neut # (Auto) (2592-8085) /uL Lymph # (Auto) (5973-1278) /uL Harris # (Auto) (0-900) /uL Eos # (Auto) (0-450) /uL Baso # (Auto) (0-100) /uL PT (9.4-12.5) SECONDS INR (0.9-1.3) APTT (25.1-36.5) SECONDS Sodium (137-145) mmol/L Potassium (3.4-5.1) mmol/L Chloride (98-107) mmol/L Carbon Dioxide (22-32) mmol/L BUN (9-20) mg/dL Creatinine (0.66-1.25) mg/dL Estimated GFR (>60) mL/min BUN/Creatinine Ratio (6-22) Glucose (80-110) mg/dL Calcium (8.4-10.2) mg/dL Magnesium (1.6-2.3) mg/dL Total Bilirubin (0.2-1.3) mg/dL AST (17-59) IU/L ALT (<50) IU/L Alkaline Phosphatase (38-126) U/L Total Creatine Kinase 125 (55-170) U/L Troponin I 0.036 H (0.01-0.034) ng/mL NT-Pro-B Natriuret Pep (<125) pg/mL Total Protein (6.3-8.2) g/dL Albumin (3.5-5.0) g/dL Globulin (1.7-4.1) g/dL Albumin/Globulin Ratio (1.0-2.8) Lipase (23-300) U/L Procalcitonin 0.08 (<0.5) ng/mL Chlamy pneumoniae PCR (Not Detect) Adenovirus (PCR) (Not Detect) B.parapertussis DNA PCR (Not Detecte) Coronavirus OC43 (PCR) (Not Detect) Coronavirus HKU1 (PCR) (Not Detect) Coronavirus 229E (PCR) (Not Detect) SARS-CoV-2 (PCR) Coronavirus NL63 (PCR) (Not Detect) Human Metapneumovir PCR (Not Detect) Influenza A (RT-PCR) Influenza Type A (PCR) (Not Detect) Influenza B (RT-PCR) Influenza Type B (PCR) (Not Detect) M. pneumoniae (PCR) (Not Detect) Parainfluenza 1 (PCR) (Not Detect) Parainfluenza 2 (PCR) (Not Detect) Parainfluenza 3 (PCR) (Not Detect) Parainfluenza 4 (PCR) (Not Detect) RSV (PCR) Not detected Entero/Rhino (PCR) Not detected (Not Detect) Imaging Data Chest x-ray: Radiologist's Impression: PROCEDURE: XR CHEST 1V INDICATIONS: SOB TECHNIQUE: One view of the chest was acquired. COMPARISON: [facility], CHEST 1 VIEW, 07/07/2009, 23:01. FINDINGS: Surgical changes and devices: None. Lungs and pleura: Bibasilar patchy consolidation, left greater than right. Small left pleural effusion. No right-sided pleural effusion. No pneumothorax bilaterally. Mediastinum: Mediastinal contours appear normal. Heart size is normal. Bones and chest wall: No suspicious bony lesions. Overlying soft tissues appear unremarkable. IMPRESSION: Bibasilar patchy consolidation, left greater than right, with small left pleural effusion is suggestive of atelectasis, aspiration and/or pneumonia. Recommend radiographic follow-up to document resolution. CTA - brain/neck: Radiologist's Impression: PROCEDURE: CT ANGIO CHEST PE PROTOCOL INDICATIONS: Chest pain, shortness of breath, tachycardia TECHNIQUE: After the administration of intravenous contrast, 2 mm thick sections acquired from the pulmonary apices to the posterior costophrenic angles. 3-dimensional maximum intensity projection (MIP) coronal and sagittal reformats were then acquired through the thorax. For radiation dose reduction, the following was used: automated exposure control, adjustment of mA and/or kV according to patient size. COMPARISON: None. FINDINGS: Image quality: Diagnostic. Pulmonary arteries: Pulmonary arteries are normal in size, and demonstrate no intraluminal filling defects to suggest central pulmonary embolism. Lower Neck: No enlarged lymph nodes. Thyroid: No thyroid nodules which require sonographic follow up, per consensus guidelines. Axillae: No enlarged lymph nodes. Chest Wall: Unremarkable. Bones: Unremarkable. Lungs and Pleura: No pneumothorax. Moderate bilateral joint effusions. Mild dependent opacity. No pulmonary nodules identified. Heart: Heart size is prominent. Three-vessel coronary artery calcification. No pericardial effusion. Thoracic Vessels: No aortic aneurysm. Mediastinum and Genie: Enlarged right paratracheal lymph node measuring 1.2 cm, (). Esophagus: No wall thickening. No hiatal hernia. Upper Abdomen: Visualized upper abdomen solid organs and bowel loops appear normal. IMPRESSION: 1. No pulmonary embolism. 2. Moderate bilateral pleural effusions. Dependent airspace opacity which has the appearance of atelectasis. 3. Enlarged right paratracheal lymph node measuring 1.2 cm. Favor reactive etiology. 4. Three-vessel coronary artery calcifications ECG Data Attestation: I personally reviewed and interpreted this ECG as follows: Interpretation: Atrial fibrillation Ventricular rate 127 Normal axis Occasional PVCs No ST T wave changes MDM Narrative Medical decision making narrative: Arrived in AFib with RVR. Not clinically in heart failure. No chest pain. Unsure the exact onset but potentially within the past 24 to 48 hours. He has not anticoagulated. No prior history of AFib. Does have an elevated troponin but this is unchanged with recheck. I suspect that this is demand ischemia. BNP slightly elevated. No PE on CT scan. No indication for antibiotics. He was given Lasix. Has an elevation in his LFTs but has no abdominal pain. Admitting provider asked for right upper quadrant ultrasound. Echocardiogram also ordered. Discussed the case with Dr Alejandra he was on-call for the patient's primary doctor who will admit for rate control. Discussed the need for admission with the patient. He expressed understanding and agreement with plan. Discharge Plan Departure Patient Disposition: Admitted As Inpatient Clinical Impression: Atrial fibrillation with RVR, Transaminitis Admit Date/Time: 07/05/23 14:17 Admit Provider: Harry Tinsley
[2023-07-05 11:22] LABS: Prothrombin Time 11.9 SECONDS (9.4-12.5)
[2023-07-05 11:25] LABS: PTT Partial Thromboplastin Tim 30 SECONDS (25.1-36.5)
[2023-07-05 11:27] LABS: Alanine Aminotransferase 330 IU/L (<50); Albumin 4.5 g/dL (3.5-5.0); Albumin Globulin Ratio 1.7 (1.0-2.8); Alkaline Phosphatase 124 U/L (38-126); Aspartate Aminotransferase 141 IU/L (17-59); BUN Creatinine Ratio 25.7 (6-22); Bilirubin Total 1.5 mg/dL (0.2-1.3); Blood Urea Nitrogen 19 mg/dL (9-20); Calcium 9.4 mg/dL (8.4-10.2); Carbon Dioxide 27 mmol/L (22-32); Chloride 100 mmol/L (98-107); Creatine Kinase 148 U/L (55-170); Estimated Glomerular Filt Rate > 60 mL/min (>60); Globulin 2.6 g/dL (1.7-4.1); Glucose 148 mg/dL (80-110); HEMOLYSIS < 15 (0-50); Lipase 70 U/L (23-300); Magnesium 1.9 mg/dL (1.6-2.3); Potassium 3.2 mmol/L (3.4-5.1); Sodium 136 mmol/L (137-145); Total Protein 7.1 g/dL (6.3-8.2)
[2023-07-05] MEDS: dilTIAZem 5 MG/ML SDV 10 MG IV (11:38)
[2023-07-05] MEDS: DILTIAZEM 125 MG/125 ML PIGGYBACK IV (11:38)
[2023-07-05 11:39] LABS: NT-proBNP (BNP-Adult 18+) 2160 pg/mL (<125); Troponin I 0.037 ng/mL (0.01-0.034)
[2023-07-05] MEDS: ASPIRIN 81 MG CHEW TAB 324 MG PO (11:51)
[2023-07-05 11:54] LABS: Procalcitonin 0.08 ng/mL (<0.5)
[2023-07-05 12:20] LABS: Adenovirus Not Detected (Not Detect); B. parapertussis Not Detected (Not Detecte); Bordetella pertussis Not Detected (Not Detect); Chlamydophila pneumoniae Not Detected (Not Detect); Coronavirus 229E Not Detected (Not Detect); Coronavirus HKU1 Not Detected (Not Detect); Coronavirus NL 63 Not Detected (Not Detect); Coronavirus OC43 Not Detected (Not Detect); Human Metapneumovirus Not Detected (Not Detect); Human Rhinovirus/Enterovirus Not Detected (Not Detect); Influenza A Not Detected (Not Detect); Influenza B Not Detected (Not Detect); Mycoplasma pneumoniae Not Detected (Not Detect); Parainfluenza Virus 1 Not Detected (Not Detect); Parainfluenza Virus 2 Not Detected (Not Detect); Parainfluenza Virus 3 Not Detected (Not Detect); Parainfluenza Virus 4 Not Detected (Not Detect); Respiratory Syncytial Virus Not Detected (Not Detect); SARS- CoV-2 Not Detected (Not Detecte)
[2023-07-05 13:19] LABS: Creatine Kinase 125 U/L (55-170)
[2023-07-05 13:31] LABS: Troponin I 0.036 ng/mL (0.01-0.034)
--- NOTE | 2023-07-05 14:00 | DI.ECHO.S_ITS ---
[facility] : : [id number] : : [place] : : [id number] : : Phone: [phone] Echocardiogram Report + + :Name: VIVIANA FITZPATRICK Study Date: 07/05/2023 Height: 70 in : :[facility] ReadingLocation: Weight: 210 lb : : Gender: Male BSA: 2.1 m2 : :: 1955 Age: 68 yrs BP: 135/106 mmHg: :Reason For Study: ATRIAL FIBRILLATION : :Ordering Physician: LETI, : :WENDY Performed By: Shila Bolaños : :Referring: WENDY LANDEROS : + + Interpretation Summary The left ventricle is severely dilated. Left ventricular systolic function is severely reduced. The ejection fraction is estimated to be 15-20%. There is severe global hypokinesis of the left ventricle. The right ventricle is mildly dilated. Right ventricular systolic function is at the lower limits of normal. Pulmonary artery pressures cannot be estimated because of the lack of a measurable TR jet velocity but the IVC suggests a CVP of around 15 mmHg. The left atrium is severely dilated. There is mild to moderate mitral regurgitation. There is no other significant valvular heart disease. The ascending aorta is mildly enlarged. Procedure: A two-dimensional transthoracic echocardiogram with color flow and Doppler was performed. The study quality was technically good. There is no prior echocardiogram noted for this patient. The patient was in atrial fibrillation with heart rates between 92-122 bpm during the exam. Left Ventricle: The left ventricle is severely dilated. The estimated left ventricular end diastolic volume is 253 ml. There is normal left ventricular wall thickness. Left ventricular systolic function is severely reduced. The ejection fraction is estimated to be 15-20%. Left ventricular end diastolic volume indexed to BSA of 119.0ml/m2. There is severe global hypokinesis of the left ventricle. Diastolic function could not be accurately assessed due to atrial fibrillation. Right Ventricle: The right ventricle is mildly dilated. Right ventricular systolic function is at the lower limits of normal. Atria: The left atrium is severely dilated. The right atrium grossly appears normal in size. There is no Doppler evidence for an interatrial shunt. Mitral Valve: The mitral valve is normal in structure but abnormal in function. There is mild to moderate mitral regurgitation. Aortic Valve: The aortic valve is trileaflet. The aortic valve opens well. There is no aortic valve stenosis. There is trace aortic regurgitation. Tricuspid Valve: The tricuspid valve is normal in structure and function. Pulmonary artery pressures cannot be estimated because of the lack of a measurable TR jet velocity but the IVC suggests a CVP of around 15 mmHg. There is mild tricuspid regurgitation. Pulmonic Valve: The pulmonic valve is not well seen, but is grossly normal. There is trace pulmonic regurgitation. There is no other significant valvular heart disease. Great Vessels: The aortic root is normal size. The ascending aorta is mildly enlarged. The IVC is dilated (diameter is greater than 2.1 cm) and it collapses less than 50% with a sniff. This suggests a high right atrial pressure of 15 mm Hg. Pericardium/ Pleura There is no pericardial effusion. There is a moderate left-sided pleural effusion. MMode/2D Measurements & Calculations LVIDd: 6.8 cm LVOT diam: 2.4 cm LVIDs: 6.3 cm Ao root diam: 3.5 cm FS: 7.5 % asc Aorta Diam: 3.6 cm IVSd: 0.89 cm Ao Arch Diam (Prox Trans): 3.2 cm LVPWd: 1.1 cm LV etienne. diameter/BSA (cm/m^2): 3.2 LV sys. diameter/BSA (cm/m^2): 3.0 LA A2 area: 30.0 cm2 RA long axis: 5.9 cm LA A4 area: 27.1 cm2 RA area: 20.9 cm2 LA length (vol): 5.9 cm RA vol: 63.0 ml LA vol: 116.7 ml RA : 29.5 ml/m2 LA vol index: 54.8 ml/m2 IVC diam: 2.4 cm RVD1 (basal): 4.4 cm RVD2 (mid): 3.2 cm TAPSE: 1.6 cm Doppler Measurements & Calculations Ao V2 max: 118.8 cm/sec LVOT Max Tyler: 66.6 cm/sec Ao V2 mean: 86.4 cm/sec LV V1 max P.8 mmHg Ao max P.8 mmHg LV V1 VTI: 8.9 cm Ao mean P.3 mmHg ARVIN(I,D): 2.2 cm2 Ao V2 VTI: 18.8 cm ARVIN(V,D): 2.6 cm2 sev ratio: 0.47 ARVIN indexed to BSA (cm^2/m^2): 1.0 MV E max tyler: 70.5 cm/sec PA V2 max: 73.9 cm/sec MV A max tyler: 1.1 cm/sec PA V2 mean: 56.9 cm/sec MV E/A: 65.5 PA mean P.4 mmHg Med Peak E' Tyler: 5.6 cm/sec PA pr(Accel): 43.0 mmHg E/E' med: 12.6 Lat Peak E' Tyler: 4.5 cm/sec E/E' lat: 15.8 E/e' average: 14.2 MV dec time: 0.12 sec MR ERO: 0.25 cm2 MR PISA: 3.1 cm2 SV(LVOT): 40.7 ml MR flow rate: 105.4 cm3/sec MR PISA radius: 0.70 cm Reading Physician:05:10 PM
--- NOTE | 2023-07-05 14:02 | DI.US.S_ITS ---
PROCEDURE: US ABDOMEN LIMITED INDICATIONS: RUQ us eval for gb pathology TECHNIQUE: Real-time scanning was performed of the abdominal and retroperitoneal organs, with image documentation. COMPARISON: [facility], CT, CT ANGIO CHEST PE PROTOCOL, 07/05/2023, 12:01. FINDINGS: Liver: Liver is mildly enlarged measuring 17.3 cm and homogeneous in echotexture. Liver parenchyma is diffusely echogenic except for area of sparing in the gallbladder fossa. Main portal vein is patent with hepatopedal flow. Gallbladder: No gallstones. No wall thickening. No pericholecystic edema. Negative sonographic Wliliam's sign. Biliary ducts: Intrahepatic bile ducts are non-dilated. Extrahepatic bile duct caliber measures 5 mm. Normal is 6-7 mm or less in diameter, or 10 mm or less post-cholecystectomy. Pancreas: Not well seen secondary to bowel gas. Miscellaneous: No free abdominal fluid. Small right pleural effusion. IMPRESSION: 1. Liver parenchyma is diffusely echogenic which may be seen in the setting of parenchymal disease such as steatosis. Fatty sparing in the gallbladder fossa. 2. Normal gallbladder. No biliary ductal dilatation. 3. Small right pleural effusion as seen on CT chest dated July 05, 2023. Dictated by: Gisselle Olivares M.D. on 07/05/2023 at 14:52 Approved by: Gisselle Olivares M.D. on 07/05/2023 at 14:55
[2023-07-05] MEDS: POTASSIUM CHLORIDE 20 MEQ TAB 40 MEQ PO (14:11)
[2023-07-05] MEDS: FUROSEMIDE 40 MG/4 ML VIAL IV (14:11)
--- NOTE | 2023-07-05 18:46 | P.HP_ITS ---
History of Present Illness History of Present Illness Date Patient Seen: 07/05/23 Time Patient Seen: 17:30 Chief complaint: sob, dizziness, weak Narrative: This is a very pleasant 68-year-old male who is under the primary care of Dr. Tinsley. Patient presented to the emergency department via private vehicle due to a 2 day history of dizziness and shortness of breath with exertion. Patient was found to be in AFib with RVR was started on a diltiazem drip. Had elevated BNP with question of possible pneumonia on x-ray but CT scan of his chest showed no PE but did show bilateral pleural effusions. He had elevated liver function tests and abdominal ultrasound was done which shows echogenic liver but no other abnormalities. He was given IV Lasix for suspected fluid overload and CK x2 was negative but troponin was 0.037 just minimally elevated and repeat 2 hours later was 0.036. He was admitted to the ICU. On further questioning patient states that he has been tired over the last week. He says he was in [place] and was ex, lisinopril ercising a lot and his blood pressure was coming down because he was working on it but he states that it was in the low 100s. He denies presyncope or syncope. He states that yesterday he did have some chest tightness left anterior but has had no chest pain per se. He had no pain radiating to shoulder or to his jaw. He had no diaphoresis or nausea or vomiting associated with that. Patient states he would difficulty sleeping the last 2 nights and had to sleep on his right side. He did not have to prop his bed up. Patient had a non imaging standard treadmill in July of 2022 due to his brother undergoing a CABG last year at age 67 and apparently this failed and he ended up with the heart transplant. No other information was given. The exercise treadmill showed some ectopy and a hypertensive response but he had great exercise tolerance. Past medical history: 1. Hypertension 2. Hyperlipidemia 3. 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 Prediabetes 6. DJD 7. Colonoscopy was normal in 2020 repeat in 10 years Current medications: Atorvastatin 20 mg daily Hydrochlorothiazide 25 mg daily Amlodipine 10 mg daily Allergies: Lisinopril caused angioedema Past surgical history: Bilateral total hip replacements Bilateral meniscal surgery procedures Health related behavior: Patient is a daily drinker. Has 3-5 drinks daily Patient has never been a smoker Patient does not chew Patient is very active exercising 2-4 miles a day walking. No longer runs because of orthopedic issues Family history: Mom of an acute NE at age 53 Brother at age 67 underwent CABG and then required heart transplant Social history: Patient is , no children Patient is retired teacher vocational training Review of system: Denies any hematemesis. Denies abdominal pain. Denies any bleeding. Patient has not had any surgical procedures or trauma in the last month. Patient denies any headaches. Patient has not had any infections. No cough or shortness of breath [facility] History History of hip replacement History of hip replacement Family History Mother Hypertension High cholesterol Heart disease Social History household members: spouse Smoking Status: Never smoker alcohol intake: current Meds Home Medications and Allergies Home Medications Medication Instructions Recorded Confirmed Type ASPIRIN (#ASPIRIN EC) 325 mg PO Q DAY ##0 01/14/11 09/02/20 History amlodipine 5 mg tablet (Norvasc) 5 mg PO QDAY #90 tabs 10/26/19 11/10/22 Rx atorvastatin 20 mg tablet (Lipitor) 40 mg PO DAILY 11/10/22 11/10/22 History lisinopril 40 mg tablet 40 mg PO DAILY 11/10/22 11/10/22 History Allergies Allergy/AdvReac Type Severity Reaction Status Date / Time No Known Drug Allergies Allergy Verified 11/10/22 09:29 Exam Vital Signs (past 8 hours): - 07/05/23 10:49 07/05/23 10:49 07/05/23 10:50 Temperature Pulse Rate 142 H 140 H Respiratory Rate 23 19 Blood Pressure 139/87 Pulse Oximetry 92 92 Oxygen Delivery Method Nasal Cannula Nasal Cannula Oxygen Flow Rate 2 2 07/05/23 10:50 07/05/23 11:00 07/05/23 11:06 Temperature 97.6 F Pulse Rate 134 H 143 H Respiratory Rate 25 H 22 Blood Pressure 148/82 H 139/78 Pulse Oximetry 93 86 L Oxygen Delivery Method Nasal Cannula Room Air Oxygen Flow Rate 2 07/05/23 11:08 07/05/23 11:08 07/05/23 11:10 Temperature Pulse Rate 132 H 129 H Respiratory Rate 22 23 Blood Pressure 145/95 H Pulse Oximetry 93 92 Oxygen Delivery Method Nasal Cannula Oxygen Flow Rate 2 07/05/23 11:11 07/05/23 11:11 07/05/23 11:20 Temperature Pulse Rate 132 H 133 H Respiratory Rate 24 22 Blood Pressure 115/93 H Pulse Oximetry 93 91 Oxygen Delivery Method Oxygen Flow Rate 07/05/23 11:20 07/05/23 11:30 07/05/23 11:30 Temperature Pulse Rate 132 H Respiratory Rate 17 Blood Pressure 128/104 H 130/83 Pulse Oximetry 94 Oxygen Delivery Method Oxygen Flow Rate 07/05/23 11:38 07/05/23 11:40 07/05/23 11:40 Temperature Pulse Rate 133 H 132 H Respiratory Rate 20 Blood Pressure 130/83 125/89 Pulse Oximetry 92 Oxygen Delivery Method Nasal Cannula Oxygen Flow Rate 3 07/05/23 11:50 07/05/23 11:50 07/05/23 12:00 Temperature Pulse Rate 120 H Respiratory Rate 25 H Blood Pressure 104/84 Pulse Oximetry 91 92 Oxygen Delivery Method Oxygen Flow Rate 07/05/23 12:10 07/05/23 12:12 07/05/23 12:12 Temperature Pulse Rate 107 H 119 H Respiratory Rate 18 Blood Pressure 107/85 Pulse Oximetry 93 91 Oxygen Delivery Method Oxygen Flow Rate 07/05/23 12:20 07/05/23 12:20 07/05/23 12:30 Temperature Pulse Rate 106 H 105 H Respiratory Rate 18 10 L Blood Pressure 114/89 Pulse Oximetry 92 93 Oxygen Delivery Method Nasal Cannula Oxygen Flow Rate 3 07/05/23 12:30 07/05/23 12:37 07/05/23 12:40 Temperature Pulse Rate 108 H Respiratory Rate 12 Blood Pressure 111/91 H Pulse Oximetry 92 91 Oxygen Delivery Method Nasal Cannula Oxygen Flow Rate 2 07/05/23 12:40 07/05/23 12:50 07/05/23 12:51 Temperature Pulse Rate 103 H 109 H Respiratory Rate 12 18 Blood Pressure 121/105 H Pulse Oximetry 93 92 Oxygen Delivery Method Nasal Cannula Oxygen Flow Rate 2 07/05/23 12:51 07/05/23 13:00 07/05/23 13:10 Temperature Pulse Rate 108 H 104 H Respiratory Rate 22 12 Blood Pressure 121/93 H Pulse Oximetry 92 93 Oxygen Delivery Method Oxygen Flow Rate 07/05/23 13:10 07/05/23 13:20 07/05/23 13:28 Temperature Pulse Rate 101 H Respiratory Rate 12 Blood Pressure 116/75 117/78 Pulse Oximetry 93 Oxygen Delivery Method Nasal Cannula Oxygen Flow Rate 2 07/05/23 13:28 07/05/23 13:30 07/05/23 13:30 Temperature Pulse Rate 108 H 97 H Respiratory Rate 25 H 19 Blood Pressure 125/84 Pulse Oximetry 93 92 Oxygen Delivery Method Oxygen Flow Rate 07/05/23 13:40 07/05/23 13:40 07/05/23 13:50 Temperature Pulse Rate 99 H 97 H Respiratory Rate 14 17 Blood Pressure 118/73 Pulse Oximetry 94 93 Oxygen Delivery Method Oxygen Flow Rate 07/05/23 13:50 07/05/23 14:00 07/05/23 14:01 Temperature Pulse Rate 102 H 99 H Respiratory Rate 16 10 L Blood Pressure 117/66 Pulse Oximetry 92 95 Oxygen Delivery Method Oxygen Flow Rate 07/05/23 14:01 07/05/23 14:10 07/05/23 14:10 Temperature Pulse Rate 107 H Respiratory Rate 21 Blood Pressure 109/77 116/89 Pulse Oximetry 93 Oxygen Delivery Method Oxygen Flow Rate 07/05/23 14:20 07/05/23 14:20 07/05/23 14:20 Temperature Pulse Rate 121 H Respiratory Rate 20 Blood Pressure 119/86 Pulse Oximetry 93 Oxygen Delivery Method Nasal Cannula Oxygen Flow Rate 07/05/23 14:30 07/05/23 14:30 07/05/23 14:40 Temperature Pulse Rate 121 H 119 H Respiratory Rate 29 H 27 H Blood Pressure 131/100 H Pulse Oximetry 91 92 Oxygen Delivery Method Oxygen Flow Rate 07/05/23 14:40 07/05/23 14:50 07/05/23 14:50 Temperature Pulse Rate 107 H Respiratory Rate 17 Blood Pressure 116/80 125/91 H Pulse Oximetry 93 Oxygen Delivery Method Oxygen Flow Rate 07/05/23 15:00 07/05/23 15:13 07/05/23 15:14 Temperature 98.3 F Pulse Rate 116 H Respiratory Rate Blood Pressure Pulse Oximetry 92 Oxygen Delivery Method Oxygen Flow Rate 2 Oxygen Delivery Method Nasal Cannula Oxygen Flow Rate 2 Narrative Exam Narrative: Afebrile vital signs are stable other than heart rate in the low 100 and initial blood pressure when I was talking to him was 150/100 O2 sats in the mid 90s on 4 L nasal cannula oxygen HEENT is unremarkable Neck: Supple without adenopathy thyromegaly, jugular venous distention or bruits Chest: Slightly decreased breath sounds bibasilar but no wheezes or rhonchi or crackles and improved air exchange Cor: Distant S1-S2 irregularly irregular rhythm at a rate in the low 100s Abdomen: Positive bowel sounds, soft, nontender, nondistended, no hepatosplenomegaly Extremities: No edema, pulses intact 2+ bilaterally Neurologic exam is nonfocal Skin no rashes Objective Labs 07/05/23 11:00 07/05/23 11:00 Labs: Laboratory Results - last 24 hr 07/05/23 07/05/23 07/05/23 11:00 11:23 11:23 WBC 6.8 RBC 4.54 Hgb 14.4 Hct 42.3 MCV 93.2 MCH 31.8 MCHC 34.1 RDW 13.9 Plt Count 189 Neut % (Auto) 59.0 Lymph % (Auto) 29.6 [place] % (Auto) 9.5 Eos % (Auto) 1.0 L Baso % (Auto) 0.9 Neut # (Auto) 4000 Lymph # (Auto) 2000 [place] # (Auto) 600 Eos # (Auto) 100 Baso # (Auto) 100 PT 11.9 INR 1.0 APTT 30 Sodium 136 L Potassium 3.2 L Chloride 100 Carbon Dioxide 27 BUN 19 Creatinine 0.74 Estimated GFR > 60 BUN/Creatinine Ratio 25.7 H Glucose 148 H Calcium 9.4 Magnesium 1.9 Total Bilirubin 1.5 H AST 141 H ALT 330 H Alkaline Phosphatase 124 Total Creatine Kinase 148 Troponin I 0.037 H NT-Pro-B Natriuret Pep 2160 H Total Protein 7.1 Albumin 4.5 Globulin 2.6 Albumin/Globulin Ratio 1.7 Lipase 70 Procalcitonin Chlamy pneumoniae PCR Not detected Adenovirus (PCR) Not detected B.parapertussis DNA PCR Not detected Coronavirus OC43 (PCR) Not detected Coronavirus HKU1 (PCR) Not detected Coronavirus 229E (PCR) Not detected SARS-CoV-2 (PCR) Cancelled Not detected Coronavirus NL63 (PCR) Not detected Human Metapneumovir PCR Not detected Influenza A (RT-PCR) Cancelled Influenza Type A (PCR) Not detected Influenza B (RT-PCR) Cancelled Influenza Type B (PCR) Not detected M. pneumoniae (PCR) Not detected Parainfluenza 1 (PCR) Not detected Parainfluenza 2 (PCR) Not detected Parainfluenza 3 (PCR) Not detected Parainfluenza 4 (PCR) Not detected RSV (PCR) Cancelled Entero/Rhino (PCR) 07/05/23 07/05/23 07/05/23 11:23 11:26 13:00 WBC RBC Hgb Hct MCV MCH MCHC RDW Plt Count Neut % (Auto) Lymph % (Auto) [place] % (Auto) Eos % (Auto) Baso % (Auto) Neut # (Auto) Lymph # (Auto) [place] # (Auto) Eos # (Auto) Baso # (Auto) PT INR APTT Sodium Potassium Chloride Carbon Dioxide BUN Creatinine Estimated GFR BUN/Creatinine Ratio Glucose Calcium Magnesium Total Bilirubin AST ALT Alkaline Phosphatase Total Creatine Kinase 125 Troponin I 0.036 H NT-Pro-B Natriuret Pep Total Protein Albumin Globulin Albumin/Globulin Ratio Lipase Procalcitonin 0.08 Chlamy pneumoniae PCR Adenovirus (PCR) B.parapertussis DNA PCR Coronavirus OC43 (PCR) Coronavirus HKU1 (PCR) Coronavirus 229E (PCR) SARS-CoV-2 (PCR) Coronavirus NL63 (PCR) Human Metapneumovir PCR Influenza A (RT-PCR) Influenza Type A (PCR) Influenza B (RT-PCR) Influenza Type B (PCR) M. pneumoniae (PCR) Parainfluenza 1 (PCR) Parainfluenza 2 (PCR) Parainfluenza 3 (PCR) Parainfluenza 4 (PCR) RSV (PCR) Not detected Entero/Rhino (PCR) Not detected Assessment & Plan Assessment & Plan narrative: 68-year-old male presents to ER with complaints of dizziness and dyspnea on exertion found to have AFib with RVR and echo shows ejection fraction of 15-20% with severe global hypokinesis in the left ventricle mildly dilated right ventricle severely dilated left ventricle. Assessment 1. AFib with RVR suspect this is secondary to the cardiomyopathy and worried that this may be a familial cardiomyopathy. Plan: Discussed with Cardiology at [facility] as we do not have inpatient Cardiology available here at [facility]. Given the complexity of presentation the severity of the cardiomyopathy this warrants transfer to level of [facility] care that has the ability for fast food restaurant manager to be consulting on the patient in person and treating with possible EHSAN and possible cardioversion as well as to aggressively treat both the AFib with RVR and the cardiomyopathy and rule out coronary artery disease as a contributing factor. Sumo Wrestler agrees. Due to the evidence of severe cardiomyopathy we will wean off diltiazem which is contraindicated in his situation. We will start on an esmolol drip. Due to possibility ehsan possible cardioversion we will initiate heparin therapy. I discussed all these interventions with the patient the rationale and potential side effects. Reviewed blood works with BNP suggestive of pulmonary edema possibly related to cardiomyopathy and worsened by AFib with RVR. This corresponds with the pleural effusions and possible LFT elevations though unsure this is related. Received IV Lasix in ER in his showing adequate diuresis. Assessment 2. Cardiomyopathy new diagnosis as above. Troponins are borderline increased and I suspect this is related to the cardiomyopathy with pulmonary edema and AFib with RVR. Will continue to trend Assessment 3. Elevated liver function tests of unclear etiology. This is new diagnosis. Unclear if this is related to fluid overload. Less likely given echo findings. Abdominal ultrasound shows echogenic liver but no other acute abnormalities. No gallstones or biliary disease noted. Will follow as we diurese Assessment 4. Hypokalemia Plan: Patient received potassium in the ER will follow and replace as we are giving him Lasix Assessment 5. V-tach on monitor Plan: Will continue with the above will check Mag and repeat potassium. Plan for transferred to [facility] so that he can be cared for by fast food restaurant manager. Assessment 6. Coronary atherosclerosis seen on CT scan with a standard treadmill that was done last year and family history of coronary artery disease now with severe cardiomyopathy Plan: Will trend CK and troponin. Patient will need further investigation once medically stable or sooner if symptoms indicating such Code status is full code 78 minutes spent with patient discussing with physicians, nursing, Cardiology, pharmacy, meeting with the patient and his and reviewing his workup in his clinic history and developing a plan and documentation Plan is transferred to [facility] for higher level of care due to severe cardiomyopathy with AFib with RVR and need for fast food restaurant manager, possible EHSAN and cardioversion and treatment of V-tach and possible cardiac catheterization. Reviewed with Dr. Higinio Bolton and he is accepted patient and will follow him. Waiting call from [facility]. Quality VTE Deep Vein Thrombosis/Pulmonary Embolism Present on Admission: No
[2023-07-05] MEDS: HEPARIN DRIP 25,000 UNIT/500 ML IV.SOLN 22.861 UNIT IV (19:02)
[2023-07-05] MEDS: ESMOLOL 2.5 GM/250 ML IV.SOLN IV (19:21)
[2023-07-05 19:23] LABS: HEMOLYSIS < 15 (0-50); Magnesium 1.8 mg/dL (1.6-2.3); Potassium 3.2 mmol/L (3.4-5.1)
[2023-07-05] MEDS: POTASSIUM CHLORIDE IN WATER 10 MEQ/100 ML PIGGYBACK 100 MEQ IV ×4 (19:54→22:59)
--- NOTE | 2023-07-06 | CM.DANOTE ---
Report given to Ceasar STREETER at [facility] at 2320. ACLS arrived to transport patient, patient AOX4 , Ambulated to stretcher. BP 101/83 (81), HR 99-105 Afib, afebrile, RR-22, tolerating 4L NC. Last ZD=644. Heparin gtt at 12 units/kg/hr, Esmolol paused and final bag of Potassium running per order. Patient belongings underneath transport stretcher, patients cell phone in patients hand. Patient reports having no pain.
== END 2023-07-05 23:56 | disposition short-term general hospital (02) | DRG 315 ==
LOC: ED 13:52 → AC 14:18 → ICU 15:06
PROVIDERS: Family Medicine; Admitting Provider Family Medicine; Emergency Provider Emergency Medicine; PCP Family Medicine; Referring Provider Emergency Medicine; Visit Provider Family Medicine
DX: I42.9 Cardiomyopathy, unspecified (principal); I47.20 Ventricular tachycardia, unspecified; I48.91 Unspecified atrial fibrillation; R79.89 Other specified abnormal findings of blood chemistry; I10 Essential (primary) hypertension; E87.6 Hypokalemia; I25.10 Atherosclerotic heart disease of native coronary artery without angina pectoris
CPT/HCPCS: 36415; 71045; 71275; 76705; 80053; 82550; 83690; 83735; 83880; 84132; 84145; 84484; 85025; 85610; 85730; 87633; 93005; 93306; 96365; 96366; 96375; 99284; 99285; J1644; J1940; Q9967

== ENCOUNTER → 2023-10-07 06:57 | Outpatient (CLI) | payer MEDICARE, OTHER, SELFPAY ==
[2023-07-05 14:20] VITALS: BMI 30.1
[2023-10-07 07:50] LABS: Hematocrit 43.1 % (41-53); Hemoglobin 14.3 g/dL (13.5-17.5); Mean Corpuscular HGB Conc 33.3 % (30-36); Mean Corpuscular Hemoglobin 29.7 PG (26-34); Mean Corpuscular Volume 89.4 fL (80-100); Platelet Count 168 X10^3/uL (150-400); Red Blood Cell Count 4.82 X10^6/uL (4.5-5.9); White Blood Cell Count 6.2 X10^3/uL (4.5-11.0)
[2023-10-07 08:13] LABS: BUN Creatinine Ratio 21.8 (6-22); Blood Urea Nitrogen 22 mg/dL (9-20); Calcium 9.2 mg/dL (8.4-10.2); Carbon Dioxide 22 mmol/L (22-32); Chloride 106 mmol/L (98-107); Estimated Glomerular Filt Rate > 60 mL/min (>60); Glucose 102 mg/dL (80-110); HEMOLYSIS < 15 (0-50); Potassium 4.7 mmol/L (3.4-5.1); Sodium 136 mmol/L (137-145)
== END ==
PROVIDERS: PCP Family Medicine; Referring Provider Internal Medicine Cardiovascular Disease; Visit Provider Internal Medicine Cardiovascular Disease
DX: I50.22 Chronic systolic (congestive) heart failure (principal); I25.10 Atherosclerotic heart disease of native coronary artery without angina pectoris
CPT/HCPCS: 36415; 80048; 85027

== ENCOUNTER → 2023-10-21 13:46 | Outpatient (CLI) | payer MEDICARE, OTHER, SELFPAY ==
[2023-07-05 14:20] VITALS: BMI 30.1
--- NOTE | 2023-10-21 13:47 | DI.ECHO.S_ITS ---
[place] [facility]---------+ [facility] : : [address] : [place] [address] : : [id number] : : Phone: [phone] Echocardiogram Report + + :Name: VIVIANA FITZPATRICK Study Date: 10/21/2023 Height: 70 in : :[facility] ReadingLocation: Weight: 181 lb : : Gender: Male BSA: 2.0 m2 : :: 1955 Age: 68 yrs BP: 105/69 mmHg: :Reason For Study: CHRONIC SYSTOLIC CONGESTIVE HEART FAILURE : :Ordering Physician: FILIPE, : :BEULAH Blackwell Performed By: Deion Baig : :Referring: BEULAH HERRERA : + + Interpretation Summary The left ventricle is severely dilated. The ejection fraction is estimated to be 20-25%. Grade III diastolic dysfunction. The left atrium is severely dilated. The right ventricle is moderately dilated. Right ventricular systolic function is borderline reduced. The right atrium is mildly dilated. There is moderate mitral regurgitation. Pulmonary artery pressures cannot be estimated because of the lack of a measurable TR jet velocity but the IVC suggests a CVP of around 3 mmHg. Compared to the prior study dated 07/05/2023, there is a slight improvement in the left ventricular ejection fraction. Procedure: A two-dimensional transthoracic echocardiogram with color flow and Doppler was performed. The study quality was technically adequate. Comparison is made with the echocardiogram of 07/05/2023. The patient was in sinus rhythm with heart rates between 57-65 bpm during the exam. Left Ventricle: There is normal left ventricular wall thickness. The left ventricle is severely dilated. The ejection fraction is estimated to be 20- 25%. Diastolic parameters suggest a restrictive filling pattern consistent with probable significantly elevated filling pressures. Right Ventricle: The right ventricle is moderately dilated. Right ventricular systolic function is borderline reduced. Atria: The left atrium is severely dilated. The right atrium is mildly dilated. The interatrial septum grossly appears intact with no obvious evidence for an atrial septal defect. Mitral Valve: The mitral valve is normal. There is no mitral valve stenosis. There is moderate mitral regurgitation. Aortic Valve: The aortic valve is trileaflet. There is no aortic valve stenosis. No aortic regurgitation is present. Tricuspid Valve: The tricuspid valve is normal. There is no tricuspid stenosis. There is trace tricuspid regurgitation. Pulmonary artery pressures cannot be estimated because of the lack of a measurable TR jet velocity but the IVC suggests a CVP of around 3 mmHg. Pulmonic Valve: The pulmonic valve is not well visualized. There is no pulmonic valvular stenosis. There is trace pulmonic regurgitation. Great Vessels: The aortic root is normal size. The dimensions of the ascending aorta are normal. The IVC is of normal diameter and collapses greater than 50% with a sniff. This suggests a low right atrial pressure of 3 mm Hg. Pericardium/ Pleura There is no pericardial effusion. There is no pleural effusion. MMode/2D Measurements & Calculations LVIDd: 7.1 cm LVOT diam: 2.4 cm LVIDs: 6.1 cm Ao root diam: 3.5 cm FS: 13.1 % asc Aorta Diam: 3.5 cm IVSd: 0.97 cm Ao Arch Diam (Prox Trans): 2.9 cm LVPWd: 0.86 cm LV etienne. diameter/BSA (cm/m^2): 3.5 LV sys. diameter/BSA (cm/m^2): 3.1 LA A2 area: 36.7 cm2 RA long axis: 5.6 cm LA A4 area: 29.5 cm2 RA area: 24.6 cm2 LA length (vol): 6.5 cm RA vol: 90.8 ml LA vol: 142.2 ml RA : 45.4 ml/m2 LA vol index: 71.1 ml/m2 IVC diam: 1.2 cm RVD1 (basal): 5.1 cm RVD2 (mid): 4.0 cm TAPSE: 1.9 cm Doppler Measurements & Calculations Ao V2 max: 119.4 cm/sec LVOT Max Tyler: 98.3 cm/sec Ao V2 mean: 91.1 cm/sec LV V1 max P.9 mmHg Ao max P.7 mmHg LV V1 VTI: 23.5 cm Ao mean P.6 mmHg ARVIN(I,D): 4.1 cm2 Ao V2 VTI: 26.3 cm ARVIN(V,D): 3.8 cm2 sev ratio: 0.89 ARVIN indexed to BSA (cm^2/m^2): 2.0 MV E max tyler: 83.5 cm/sec PA V2 max: 83.6 cm/sec MV A max tyler: 24.3 cm/sec PA V2 mean: 56.8 cm/sec MV E/A: 3.4 PA mean P.5 mmHg Med Peak E' Tyler: 3.9 cm/sec PA pr(Accel): 24.2 mmHg E/E' med: 21.3 Lat Peak E' Tyler: 3.2 cm/sec E/E' lat: 25.9 E/e' average: 23.6 MV dec time: 0.12 sec SV(LVOT): 107.4 ml Reading Physician:05:12 PM
== END ==
PROVIDERS: PCP Family Medicine; Referring Provider Internal Medicine Cardiovascular Disease; Visit Provider Internal Medicine Cardiovascular Disease
DX: I50.22 Chronic systolic (congestive) heart failure (principal); I34.0 Nonrheumatic mitral (valve) insufficiency
CPT/HCPCS: 93306

== ENCOUNTER 2023-11-28 08:30 | Outpatient (RCR) | payer MEDICARE, OTHER, SELFPAY ==
[2023-07-05 14:20] VITALS: BMI 30.1
== END 2023-11-28 10:30 ==
LOC: CAR 08:30
PROVIDERS: PCP Family Medicine; Referring Provider Internal Medicine Interventional Cardiology; Visit Provider Internal Medicine Interventional Cardiology
DX: Z95.5 Presence of coronary angioplasty implant and graft (principal)
CPT/HCPCS: 93798

== ENCOUNTER → 2024-02-13 10:27 | Outpatient (CLI) | payer MEDICARE, OTHER, SELFPAY ==
[2023-07-05 14:20] VITALS: BMI 30.1
--- NOTE | 2024-02-13 10:28 | DI.ECHO.S_ITS ---
[place] +---------+ [facility] : : [address] : [place] [address] : : [id number] : : Phone: [phone] Echocardiogram Report + + :Name: VIVIANA FITZPATRICK Study Date: 02/13/2024 Height: 70 in : :Hospital ReadingLocation: Weight: 185 lb : : Gender: Male BSA: 2.0 m2 : :: 1955 Age: 68 yrs BP: 140/83 mmHg: :Reason For Study: SYSTOLIC HEART FAILURE : :Ordering Physician: FILIPE, : :BEULAH Blackwell Performed By: Deion Baig : :Referring: BEULAH HERRERA : + + Interpretation Summary The left ventricle is mild-moderately dilated. The ejection fraction is estimated to be 30-35%. Grade I diastolic dysfunction. The left atrium is moderately dilated. The right ventricle is borderline dilated. The right ventricular systolic function is normal. No significant valvular abnormalities. Pulmonary artery pressures cannot be estimated because of the lack of a measurable TR jet velocity but the IVC suggests a CVP of around 3 mmHg. Compared to the prior study dated 10/21/2023, atria and ventricles have decreased in size and the ejection fraction has increased. Procedure: A two-dimensional transthoracic echocardiogram with color flow and Doppler was performed. The study quality was technically good. Comparison is made with the echocardiogram of 10/21/2023. The patient was in normal sinus rhythm during the exam. Left Ventricle: The left ventricle is mild-moderately dilated. There is normal left ventricular wall thickness. There is no ventricular septal defect visualized. The ejection fraction is estimated to be 30-35%. There is moderate to severe global hypokinesis of the left ventricle. Diastolic parameters suggest a relaxation abnormality of the left ventricle, consistent with probable normal filling pressures. Right Ventricle: The right ventricle is borderline dilated. The right ventricular systolic function is normal. Atria: The left atrium is moderately dilated. The right atrium is borderline dilated. There is no Doppler evidence for an atrial septal defect. Mitral Valve: The mitral valve is normal in structure and function. There is no mitral regurgitation noted. Aortic Valve: The aortic valve is trileaflet. The aortic valve opens well. There is no aortic valve stenosis. No aortic regurgitation is present. Tricuspid Valve: The tricuspid valve is normal in structure and function. No tricuspid regurgitation. Pulmonary artery pressures cannot be estimated because of the lack of a measurable TR jet velocity but the IVC suggests a CVP of around 3 mmHg. Pulmonic Valve: The pulmonic valve is normal in structure and function. There is trace pulmonic regurgitation. Great Vessels: The aortic root is normal size. The ascending aorta is mildly enlarged. The pulmonary artery is normal size. The IVC is of normal diameter and collapses greater than 50% with a sniff. This suggests a low right atrial pressure of 3 mm Hg. Pericardium/ Pleura There is no pericardial effusion. There is no pleural effusion. MMode/2D Measurements & Calculations LVIDd: 6.3 cm LVOT diam: 2.6 cm LVIDs: 5.7 cm Ao root diam: 3.5 cm FS: 9.8 % asc Aorta Diam: 3.7 cm EPSS: 1.1 cm IVSd: 0.96 cm LVPWd: 0.90 cm LV etienne. diameter/BSA (cm/m^2): 3.1 LV sys. diameter/BSA (cm/m^2): 2.8 LA A2 area: 28.9 cm2 RA long axis: 4.7 cm LA A4 area: 23.2 cm2 RA area: 15.5 cm2 LA length (vol): 5.8 cm RA vol: 43.5 ml LA vol: 98.8 ml RA : 21.6 ml/m2 LA vol index: 48.9 ml/m2 IVC diam: 1.0 cm RVD1 (basal): 4.1 cm RVD2 (mid): 3.7 cm TAPSE: 2.1 cm Doppler Measurements & Calculations Ao V2 max: 115.5 cm/sec LVOT Max Tyler: 89.2 cm/sec Ao V2 mean: 93.4 cm/sec LV V1 max P.2 mmHg Ao max P.3 mmHg LV V1 VTI: 22.8 cm Ao mean P.6 mmHg ARVIN(I,D): 4.3 cm2 Ao V2 VTI: 27.4 cm ARVIN(V,D): 4.0 cm2 sev ratio: 0.83 ARVIN indexed to BSA (cm^2/m^2): 2.1 MV E max tyler: 39.2 cm/sec PA V2 max: 67.2 cm/sec MV A max tyler: 71.8 cm/sec PA V2 mean: 42.9 cm/sec MV E/A: 0.55 PA mean P.87 mmHg Med Peak E' Tyler: 3.4 cm/sec PA pr(Accel): 8.8 mmHg E/E' med: 11.7 Lat Peak E' Tyler: 4.0 cm/sec E/E' lat: 9.9 E/e' average: 10.8 MV dec time: 0.26 sec SV(LVOT): 117.9 ml Reading Physician:03:58 PM
== END ==
PROVIDERS: PCP Family Medicine; Referring Provider Internal Medicine Cardiovascular Disease; Visit Provider Internal Medicine Cardiovascular Disease
DX: I50.22 Chronic systolic (congestive) heart failure (principal); I77.89 Other specified disorders of arteries and arterioles
CPT/HCPCS: 93306

== ENCOUNTER → 2024-03-06 07:05 | Outpatient (CLI) | payer MEDICARE, OTHER, SELFPAY ==
[2023-07-05 14:20] VITALS: BMI 30.1
[2024-03-06 08:07] LABS: Hemoglobin A1C% w Est Avg Glu 5.5 % (4.0-6.0)
[2024-03-06 08:16] LABS: BUN Creatinine Ratio 22.3 (6-22); Blood Urea Nitrogen 23 mg/dL (9-20); Calcium 10.3 mg/dL (8.4-10.2); Carbon Dioxide 28 mmol/L (22-32); Chloride 100 mmol/L (98-107); Estimated Glomerular Filt Rate > 60 mL/min (>60); Glucose 120 mg/dL (80-110); HEMOLYSIS < 15 (0-50); Sodium 135 mmol/L (137-145)
== END ==
PROVIDERS: PCP Family Medicine; Referring Provider Internal Medicine; Visit Provider Internal Medicine
DX: R73.03 Prediabetes (principal); I50.20 Unspecified systolic (congestive) heart failure; I48.19 Other persistent atrial fibrillation
CPT/HCPCS: 36415; 80048; 83036

== ENCOUNTER → 2024-03-13 06:58 | Outpatient (CLI) | payer MEDICARE, OTHER, SELFPAY ==
[2023-07-05 14:20] VITALS: BMI 30.1
[2024-03-13 08:29] LABS: BUN Creatinine Ratio 25.8 (6-22); Blood Urea Nitrogen 25 mg/dL (9-20); Calcium 9.5 mg/dL (8.4-10.2); Carbon Dioxide 27 mmol/L (22-32); Chloride 103 mmol/L (98-107); Estimated Glomerular Filt Rate > 60 mL/min (>60); Glucose 100 mg/dL (80-110); HEMOLYSIS < 15 (0-50); Potassium 4.7 mmol/L (3.4-5.1); Sodium 136 mmol/L (137-145)
== END ==
PROVIDERS: PCP Family Medicine; Referring Provider Internal Medicine; Visit Provider Internal Medicine
DX: I50.22 Chronic systolic (congestive) heart failure (principal)
CPT/HCPCS: 36415; 80048

== ENCOUNTER → 2024-05-07 07:46 | Outpatient (CLI) | payer MEDICARE, OTHER, SELFPAY ==
[2023-07-05 14:20] VITALS: BMI 30.1
[2024-05-07 09:12] LABS: BUN Creatinine Ratio 24.7 (6-22); Blood Urea Nitrogen 24 mg/dL (9-20); Calcium 9.8 mg/dL (8.4-10.2); Carbon Dioxide 25 mmol/L (22-32); Chloride 101 mmol/L (98-107); Estimated Glomerular Filt Rate > 60 mL/min (>60); Glucose 104 mg/dL (80-110); HEMOLYSIS < 15 (0-50); Potassium 4.7 mmol/L (3.4-5.1); Sodium 134 mmol/L (137-145)
[2024-05-07 09:42] LABS: TSH w/ Reflex to FT4 0.85 uIU/mL (0.47-4.68)
[2024-05-10 08:08] LABS: PSA Free % 17.5 % (.); PSA, Total 0.8 ng/mL (0.0-4.0)
== END ==
LOC: LAB 07:50
PROVIDERS: PCP Family Medicine; Referring Provider Internal Medicine; Visit Provider Internal Medicine
DX: I50.20 Unspecified systolic (congestive) heart failure (principal); Z00.00 Encounter for general adult medical examination without abnormal findings; Z13.29 Encounter for screening for other suspected endocrine disorder; I48.0 Paroxysmal atrial fibrillation
CPT/HCPCS: 80048; 84153; 84154; 84443